=== PATIENT | male | born 1960 | race Hispanic/Latino ===

== ENCOUNTER 2021-02-07 18:13 | Inpatient (IN) | payer MEDICAID, OTHER ==
[2021-02-07] MEDS ORDERED: SODIUM CHLORIDE 0.9% 1000 ML IV SOLN IV ONE (19:50)
--- NOTE | 2021-02-07 19:53 | Event Note ---
ED Screening Note ED Screening Note: +chills +fever +confusion +CP +SOB no abd pain, no n/v/d no sick contacts no recent travel PMHx DM, Low Platelets previously heavy drinker strong urine smell states the year is 2001, does not know the name of the president severe sepsis This initial assessment/diagnostic orders/clinical plan/treatment(s) is/are subject to change based on patients health status, clinical progression and re- assessment by fellow clinical providers in the ED. Further treatment and workup at subsequent clinical providers discretion. Patient/guardian urged not to elope from the ED as their condition may be serious if not clinically assessed and managed. Initial orders include: labs, CXR, EKG, CT head, urine charge nurse jay notified pt needs room JAMES
[2021-02-07 20:05] LABS: Basophils % (Auto) 0.4 % (0.0-1.8); Hematocrit 32.1 % (35.5-45.6); Hemoglobin 10.6 gm/dl (11.8-15.2); Lymphocytes # (Auto) 0.5 K/mm3 (1.2-5.4); Lymphocytes % (Auto) 9.4 % (13.4-35.0); Mean Corpuscular HGB Conc 33 % (32-34); Mean Corpuscular Volume 77 fl (84-94); Monocytes # (Auto) 0.5 K/mm3 (0.0-0.8); Monocytes % (Auto) 9.2 % (0.0-7.3); Red Blood Count 4.18 M/mm3 (3.65-5.03); Red Cell Distribution Width 16.8 % (13.2-15.2)
[2021-02-07] MEDS ORDERED: SODIUM CHLORIDE 0.9% 500 ML 500 ML ONE (20:10)
--- NOTE | 2021-02-07 20:13 | Emergency Department Report ---
HPI - General Chief Complaint: Weakness Time Seen by Provider: 02/07/21 19:49 - HPI HPI: This is a 60-year-old male who presents to the emergency department with complaint of having chills, pain at the area of his right foot amputation, and multiple recent falls including today. 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 He has not taken anything for his symptoms prior to presentation. He denies having a primary care physician. He is a former smoker and former drinker. He denies any illicit drug use. ED Past Medical Hx - Past Medical History Previous Medical History?: Yes Hx Diabetes: Yes Additional medical history: Hepatitis - Surgical History Past Surgical History?: No ED Review of Systems ROS: Stated complaint: RT FOOT INFECTED/FALL Other details as noted in HPI Comment: All other systems reviewed and negative Constitutional: chills. denies: diaphoresis Eyes: denies: eye pain, vision change ENT: denies: ear pain, throat pain Respiratory: denies: cough, shortness of breath Cardiovascular: denies: chest pain, palpitations Gastrointestinal: denies: abdominal pain, vomiting Genitourinary: denies: dysuria, discharge Musculoskeletal: arthralgia. denies: back pain Skin: lesions (right foot wound). denies: pruritus Neurological: denies: headache, numbness Physical Exam - Physical Exam Vital Signs: Vital Signs 02/07/21 19:50 Pulse Rate 108 H Respiratory 18 Rate Blood Pressure 72/40 [Left] Blood Pressure 84/45 [Right] O2 Sat by Pulse 98 Oximetry Physical Exam: GENERAL: The patient is well-developed well-nourished. HENT: Normocephalic. Atraumatic. Patient has moist mucous membranes. EYES: Extraocular motions are intact. NECK: Supple. Trachea is midline. CHEST/LUNGS: Clear to auscultation. There is no respiratory distress noted. HEART/CARDIOVASCULAR: Regular. There is mild tachycardia. There is no murmur. ABDOMEN: Abdomen is soft, nontender. Patient has normal bowel sounds. SKIN: Skin is warm and dry. There is a stage II ulcerating wound to the plantar portion of the right midfoot amputation. There is some mild drainage seen. NEURO: The patient is awake, alert, and cooperative. Patient is confused, AAO x2 to person and place but not time. Cranial nerves II through XII grossly intact. Normal speech. MUSCULOSKELETAL: There is no tenderness or deformity. There is no limitation range of motion. ED Course Vital Signs 02/07/21 19:50 Pulse Rate 108 H Respiratory 18 Rate Blood Pressure 72/40 [Left] Blood Pressure 84/45 [Right] O2 Sat by Pulse 98 Oximetry ED Medical Decision Making - Lab Data Result diagrams: 02/07/21 19:53 02/07/21 19:53 Lab Results 02/07/21 02/07/21 02/07/21 Range/Units 19:53 19:53 19:53 WBC 5.5 (4.5-11.0) K/mm3 RBC 4.18 (3.65-5.03) M/mm3 Hgb 10.6 L (11.8-15.2) gm/dl Hct 32.1 L (35.5-45.6) % MCV 77 L (84-94) fl MCH 25 L (28-32) pg MCHC 33 (32-34) % RDW 16.8 H (13.2-15.2) % Plt Count 85 L (140-440) K/mm3 Lymph % (Auto) 9.4 L (13.4-35.0) % [place] % (Auto) 9.2 H (0.0-7.3) % Eos % (Auto) 0.0 (0.0-4.3) % Baso % (Auto) 0.4 (0.0-1.8) % Lymph # (Auto) 0.5 L (1.2-5.4) K/mm3 [place] # (Auto) 0.5 (0.0-0.8) K/mm3 Eos # (Auto) 0.0 (0.0-0.4) K/mm3 Baso # (Auto) 0.0 (0.0-0.1) K/mm3 Seg Neutrophils % 81.0 H (40.0-70.0) % Seg Neutrophils # 4.5 (1.8-7.7) K/mm3 APTT 35.1 (24.2-36.6) Sec. VBG pH (7.320-7.420) Sodium 128 L (137-145) mmol/L Potassium 4.8 (3.6-5.0) mmol/L Chloride 93.3 L (98-107) mmol/L Carbon Dioxide 21 L (22-30) mmol/L Anion Gap 19 mmol/L BUN 12 (9-20) mg/dL Creatinine 2.0 H (0.8-1.3) mg/dL Estimated GFR 34 ml/min BUN/Creatinine Ratio 6 % Glucose 230 H (75-100) mg/dL Lactic Acid (0.7-2.0) mmol/L Calcium 8.3 L (8.4-10.2) mg/dL Total Bilirubin 0.60 (0.1-1.2) mg/dL AST 12 (5-40) units/L ALT 9 (7-56) units/L Alkaline Phosphatase 133 H (35-129) units/L Ammonia (25-60) umol/L Troponin T 0.017 (0.00-0.029) ng/mL Total Protein 6.9 (6.3-8.2) g/dL Albumin 3.1 L (3.9-5) g/dL Albumin/Globulin Ratio 0.8 % Salicylates (2.8-20.0) mg/dL Acetaminophen (10.0-30.0) ug/mL 02/07/21 02/07/21 02/07/21 Range/Units 19:53 19:53 19:53 WBC (4.5-11.0) K/mm3 RBC (3.65-5.03) M/mm3 Hgb (11.8-15.2) gm/dl Hct (35.5-45.6) % MCV (84-94) fl MCH (28-32) pg MCHC (32-34) % RDW (13.2-15.2) % Plt Count (140-440) K/mm3 Lymph % (Auto) (13.4-35.0) % [place] % (Auto) (0.0-7.3) % Eos % (Auto) (0.0-4.3) % Baso % (Auto) (0.0-1.8) % Lymph # (Auto) (1.2-5.4) K/mm3 [place] # (Auto) (0.0-0.8) K/mm3 Eos # (Auto) (0.0-0.4) K/mm3 Baso # (Auto) (0.0-0.1) K/mm3 Seg Neutrophils % (40.0-70.0) % Seg Neutrophils # (1.8-7.7) K/mm3 APTT (24.2-36.6) Sec. VBG pH 7.464 H (7.320-7.420) Sodium (137-145) mmol/L Potassium (3.6-5.0) mmol/L Chloride (98-107) mmol/L Carbon Dioxide (22-30) mmol/L Anion Gap mmol/L BUN (9-20) mg/dL Creatinine (0.8-1.3) mg/dL Estimated GFR ml/min BUN/Creatinine Ratio % Glucose (75-100) mg/dL Lactic Acid 3.30 H* (0.7-2.0) mmol/L Calcium (8.4-10.2) mg/dL Total Bilirubin (0.1-1.2) mg/dL AST (5-40) units/L ALT (7-56) units/L Alkaline Phosphatase (35-129) units/L Ammonia 23.0 L (25-60) umol/L Troponin T (0.00-0.029) ng/mL Total Protein (6.3-8.2) g/dL Albumin (3.9-5) g/dL Albumin/Globulin Ratio % Salicylates (2.8-20.0) mg/dL Acetaminophen (10.0-30.0) ug/mL 02/07/21 02/07/21 02/07/21 Range/Units 19:53 19:53 20:34 WBC (4.5-11.0) K/mm3 RBC (3.65-5.03) M/mm3 Hgb (11.8-15.2) gm/dl Hct (35.5-45.6) % MCV (84-94) fl MCH (28-32) pg MCHC (32-34) % RDW (13.2-15.2) % Plt Count (140-440) K/mm3 Lymph % (Auto) (13.4-35.0) % [place] % (Auto) (0.0-7.3) % Eos % (Auto) (0.0-4.3) % Baso % (Auto) (0.0-1.8) % Lymph # (Auto) (1.2-5.4) K/mm3 [place] # (Auto) (0.0-0.8) K/mm3 Eos # (Auto) (0.0-0.4) K/mm3 Baso # (Auto) (0.0-0.1) K/mm3 Seg Neutrophils % (40.0-70.0) % Seg Neutrophils # (1.8-7.7) K/mm3 APTT (24.2-36.6) Sec. VBG pH (7.320-7.420) Sodium (137-145) mmol/L Potassium (3.6-5.0) mmol/L Chloride (98-107) mmol/L Carbon Dioxide (22-30) mmol/L Anion Gap mmol/L BUN (9-20) mg/dL Creatinine (0.8-1.3) mg/dL Estimated GFR ml/min BUN/Creatinine Ratio % Glucose (75-100) mg/dL Lactic Acid 1.90 (0.7-2.0) mmol/L Calcium (8.4-10.2) mg/dL Total Bilirubin (0.1-1.2) mg/dL AST (5-40) units/L ALT (7-56) units/L Alkaline Phosphatase (35-129) units/L Ammonia (25-60) umol/L Troponin T (0.00-0.029) ng/mL Total Protein (6.3-8.2) g/dL Albumin (3.9-5) g/dL Albumin/Globulin Ratio % Salicylates < 0.3 L (2.8-20.0) mg/dL Acetaminophen 5.0 L (10.0-30.0) ug/mL - EKG Data -: EKG Interpreted by Ri EKG shows normal: sinus rhythm, axis, intervals, QRS complexes, ST-T waves Rate: normal - EKG Data When compared to previous EKG there are: previous EKG unavailable Interpretation: normal EKG - Radiology Data Radiology results: report reviewed, image reviewed interpreted by me: Chest x-ray does not show any acute process. There are no pleural effusions, obvious pneumonia and there is no pneumothorax. No significant cardiomegaly. X-ray of the right foot does not show any fracture, dislocation, or signs of osteomyelitis. CT head/brain wo con INDICATION / CLINICAL INFORMATION: 60 years Male; weakness, suspected sepsis, confusion. TECHNIQUE: Routine CT head without contrast. All CT scans at this location are performed using CT dose reduction for ALARA by means of automated exposure control. COMPARISON: None. FINDINGS: BRAIN / INTRACRANIAL CONTENTS: There appears be mild cerebral white matter changes most consistent with mild microvascular angiopathy. There is also mild cerebral atrophy with associated prominence of the ventricular system. There is no clear CT evidence of acute intracranial hemorrhage or significant mass effect. ORBITS: The patient is status post repair of left orbital for fracture with presence of mesh. SINUSES / MASTOIDS: The visualized paranasal sinuses are pneumatized. CRANIOCERVICAL JUNCTION: No significant abnormality. 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 IMPRESSION: 1. There is mild microvascular angiopathy and cerebral atrophy without clear CT evidence of acute intracranial hemorrhage. - Medical Decision Making This patient presents to the emergency department with a complaint of a fall with some generalized weakness that occurred today, as well as multiple recent falls. The patient presents as a code sepsis with hypotension and tachycardia. The patient was started on IV fluid and his blood pressure has improved. Afebrile. He has a diabetic foot wound to the plantar portion of the right foot which is amputated at the midfoot. An x-ray was done that does not show any current signs of osteomyelitis. Chest x-ray does not show any pneumonia, pleural effusions, pneumothorax, or any other acute process. The patient is slightly confused, currently AAO x2 to person and place but not time. He does not have any motor or sensory deficits. Cranial nerves are intact. CT scan of the head without contrast does not show any bleed, shift, mass, ischemia, or any other acute process. His labs shows hyponatremia, acute renal insufficiency with a GFR of about 30, and the patient has a lactic acidosis. He has been started on some empiric IV antibiotics. The patient will be admitted to the hospital for further evaluation and treatment and was accepted for admission by the hospitalist, Dr. Haider. Critical Care Time: No Critical care attestation.: If time is entered above; I have spent that time in minutes in the direct care of this critically ill patient, excluding procedure time. ED Disposition Clinical Impression: Hyponatremia syndrome, ANGEL (acute kidney injury), SIRS (systemic inflammatory response syndrome) Altered mental status Qualifiers: Altered mental status type: unspecified Qualified Code(s): R41.82 - Altered mental status, unspecified Disposition: OP ADMIT IP TO THIS HOSP Is pt being admited?: Yes Condition: Serious Time of Disposition: 22:22
[2021-02-07 20:25] LABS: Albumin 3.1 g/dL (3.9-5); Calcium 8.3 mg/dL (8.4-10.2)
[2021-02-07 20:26] LABS: Platelet Count 85 K/mm3 (140-440)
--- NOTE | 2021-02-07 20:39 | Cat Scan Report ---
CT head/brain wo con INDICATION / CLINICAL INFORMATION: 60 years Male; weakness, suspected sepsis, confusion. TECHNIQUE: Routine CT head without contrast. All CT scans at this location are performed using CT dos e reduction for ALARA by means of automated exposure control. COMPARISON: None. FINDINGS: BRAIN / INTRACRANIAL CONTENTS: There appears be mild cerebral white matter changes most consistent wi th mild microvascular angiopathy. There is also mild cerebral atrophy with associated prominence of t he ventricular system. There is no clear CT evidence of acute intracranial hemorrhage or significant mass effect. ORBITS: The patient is status post repair of left orbital for fracture with presence of mesh. SINUSES / MASTOIDS: The visualized paranasal sinuses are pneumatized. CRANIOCERVICAL JUNCTION: No significant abnormality. 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 IMPRESSION: 1. There is mild microvascular angiopathy and cerebral atrophy without clear CT evidence of acute int racranial hemorrhage. Signer Name: Alfonso Rosa MD Signed: 02/07/2021 8:34 PM Workstation Name: [id number]
--- NOTE | 2021-02-07 20:44 | XRay Report ---
CHEST 1 VIEW INDICATION: suspected sepsis. COMPARISON: None. FINDINGS: Support devices: None. Heart: Normal. Lungs/Pleura: There are low lung volumes with mild atelectatic changes in the bases. No consolidation or effusion. No pneumothorax. IMPRESSION: 1. No acute findings. Signer Name: Martin Lao MD Signed: 02/07/2021 8:40 PM Workstation Name: [id number]
--- NOTE | 2021-02-07 20:46 | XRay Report ---
RIGHT FOOT 2 VIEWS INDICATION: right foot wound, pain, hx of osteomyelitis. COMPARISON: No relevant prior imaging study available. FINDINGS: There has been amputation of the forefoot involving the toes and the metatarsals with sparing of the metatarsal bases. No acute cortical destruction is seen. No definite soft tissue gas. No radiodense foreign bodies. [place] vascular calcifications are not ed. IMPRESSION: 1. No radiographic evidence of acute osteomyelitis. Signer Name: Martin Lao MD Signed: 02/07/2021 8:41 PM Workstation Name: [id number]
[2021-02-07] MEDS ORDERED: CLINDAMYCIN 600 MG/50 mL 600 MG/50 ML BAG IV ONE (22:15)
[2021-02-07] MEDS ORDERED: MORPHINE 2 MG/1 ML INJ IV PRN (22:49)
[2021-02-07] MEDS ORDERED: MAGNESIUM HYDROXIDE (MOM) ORAL LIQD UDC PO PRN (22:49)
[2021-02-07] MEDS ORDERED: ONDANSETRON 4 MG/2 ML INJ IV PRN (22:49)
[2021-02-07] MEDS ORDERED: DEXTROSE 50% IN WATER (25GM) 50 ML SYRINGE IV PRN (22:49)
[2021-02-08] MEDS: ACETAMINOPHEN 325 MG TAB PO PRN (03:59)
[2021-02-08] MEDS: SODIUM CHLORIDE 0.9% 1000 ML 1,000 ML IV SCH ×2 (03:59→14:11)
--- NOTE | 2021-02-08 04:11 | History and Physical Report ---
History of Present Illness Date of examination: 02/08/21 Date of admission: 02/07/21 22:23 Chief complaint: Chills Pain right foot. History of present illness: Patient is a 60-year-old male with known history of diabetes mellitus and hepatitis C presents to the emergency room today complaining of chills and pain on the right foot after having multiple falls. Patient denies hitting his head and denies any loss of consciousness. 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 He has had some minimal drainage from the stump with increasing pain lately. Patient denies any fever or chills, no chest pain or shortness of breath, no na usea or vomiting. Work-up in the emergency room today reveals hyponatremia 128, lactic acidosis and slightly elevated creatinine level. Patient has been admitted with right foot ulcer, hypertension and SIRS. Past History Past Medical History: diabetes, hypertension Past Surgical History: Other (Partial amputation of right foot.) Social history: no significant social history Family history: no significant family history Medications and Allergies Allergies Allergy/AdvReac Type Severity Reaction Status Date / Time No Known Allergies Allergy Verified 02/07/21 22:57 Active Meds: Active Medications Acetaminophen (Acetaminophen 325 Mg Tab) 650 mg PO Q4H PRN PRN Reason: Pain MILD(1-3)/Fever >100.5/JETT Dextrose (Dextrose 50% In Water (25gm) 50 Ml Syringe) 50 ml IV Q30MIN PRN; Protocol PRN Reason: Hypoglycemia Sodium Chloride (Nacl 0.9% 1000 Ml) 1,000 mls @ 125 mls/hr IV DIRECT KRISSY Insulin Human Lispro (Insulin Lispro 100 Unit/Ml) 0 unit SUB-Q ACHS KRISSY; Protocol Magnesium Hydroxide (Magnesium Hydroxide (Mom) Oral Liqd Udc) 30 ml PO Q4H PRN PRN Reason: Constipation Morphine Sulfate (Morphine 2 Mg/1 Ml Inj) 2 mg IV Q4H PRN PRN Reason: Pain, Moderate (4-6) Ondansetron HCl (Ondansetron 4 Mg/2 Ml Inj) 4 mg IV Q8H PRN PRN Reason: Nausea And Vomiting Sodium Chloride (Sodium Chloride 0.9% 10 Ml Flush Syringe) 10 ml IV BID KRISSY Sodium Chloride (Sodium Chloride 0.9% 10 Ml Flush Syringe) 10 ml IV PRN PRN PRN Reason: LINE FLUSH Review of Systems Constitutional: chills, no fever Ears, nose, mouth and throat: no nasal congestion, no sore throat Cardiovascular: no chest pain, no palpitations Respiratory: no cough, no shortness of breath Gastrointestinal: no abdominal pain, no nausea, no vomiting, no diarrhea Genitourinary Male: no dysuria, no hematuria, no flank pain, no nocturia Musculoskeletal: no neck pain, no low back pain Integumentary: no rash, no pruritis Neurological: no headaches, no confusion Psychiatric: no anxiety, no depression Endocrine: no polydipsia, no polyuria, no nocturia Exam - Constitutional Vitals: Temp Pulse Resp BP Pulse Ox 98.8 F 90 25 H 109/57 96 02/07/21 23:05 02/07/21 23:05 02/07/21 23:05 02/07/21 23:05 02/07/21 23:05 General appearance: Present: no acute distress, well-nourished, disheveled - EENT Eyes: Present: PERRL, EOM intact. Absent: scleral icterus ENT: hearing intact, clear oral mucosa, dentition normal - Neck Neck: Present: supple, normal ROM - Respiratory Respiratory effort: normal Respiratory: bilateral: CTA - Cardiovascular Rhythm: regular Heart Sounds: Present: S1 & S2. Absent: gallop, systolic murmur, diastolic murmur, rub, click - Extremities Extremities: No edema, Full ROM, abnormal (Partial amputation right foot, 5x5cm open wound on planter aspect of right stump,) Extremity abnormal: pulses diminished Peripheral Pulses: within normal limits - Abdominal General gastrointestinal: Present: soft, non-tender, non-distended, normal bowel sounds. Absent: mass - Integumentary Integumentary: Present: clear, warm, dry. Absent: rash - Musculoskeletal Musculoskeletal: strength equal bilaterally - Psychiatric Psychiatric: appropriate mood/affect, intact judgment & insight, memory intact, cooperative - Neurologic Neurologic: CNII-XII intact, no focal deficits, moves all extremities HEART Score - HEART Score Troponin: Troponin T 0.017 ng/mL (0.00-0.029) 02/07/21 19:53 Results - Labs CBC & Chem 7: 02/08/21 04:47 02/08/21 04:47 Labs: Abnormal lab results 0302/07/21 02/07/21 Range/Units 19:53 19:53 19:53 Hgb 10.6 L (11.8-15.2) gm/dl Hct 32.1 L (35.5-45.6) % MCV 77 L (84-94) fl MCH 25 L (28-32) pg RDW 16.8 H (13.2-15.2) % Plt Count 85 L (140-440) K/mm3 Lymph % (Auto) 9.4 L (13.4-35.0) % [place] % (Auto) 9.2 H (0.0-7.3) % Lymph # (Auto) 0.5 L (1.2-5.4) K/mm3 Seg Neutrophils % 81.0 H (40.0-70.0) % VBG pH (7.320-7.420) Sodium 128 L (137-145) mmol/L Chloride 93.3 L (98-107) mmol/L Carbon Dioxide 21 L (22-30) mmol/L Creatinine 2.0 H (0.8-1.3) mg/dL Glucose 230 H (75-100) mg/dL Lactic Acid 3.30 H* (0.7-2.0) mmol/L Calcium 8.3 L (8.4-10.2) mg/dL Alkaline Phosphatase 133 H (35-129) units/L Ammonia (25-60) umol/L Albumin 3.1 L (3.9-5) g/dL Salicylates (2.8-20.0) mg/dL Acetaminophen (10.0-30.0) ug/mL 02/07/21 02/07/21 02/07/21 Range/Units 19:53 19:53 19:53 Hgb (11.8-15.2) gm/dl Hct (35.5-45.6) % MCV (84-94) fl MCH (28-32) pg RDW (13.2-15.2) % Plt Count (140-440) K/mm3 Lymph % (Auto) (13.4-35.0) % [place] % (Auto) (0.0-7.3) % Lymph # (Auto) (1.2-5.4) K/mm3 Seg Neutrophils % (40.0-70.0) % VBG pH 7.464 H (7.320-7.420) Sodium (137-145) mmol/L Chloride (98-107) mmol/L Carbon Dioxide (22-30) mmol/L Creatinine (0.8-1.3) mg/dL Glucose (75-100) mg/dL Lactic Acid (0.7-2.0) mmol/L Calcium (8.4-10.2) mg/dL Alkaline Phosphatase (35-129) units/L Ammonia 23.0 L (25-60) umol/L Albumin (3.9-5) g/dL Salicylates < 0.3 L (2.8-20.0) mg/dL Acetaminophen (10.0-30.0) ug/mL 02/07/21 Range/Units 19:53 Hgb (11.8-15.2) gm/dl Hct (35.5-45.6) % MCV (84-94) fl MCH (28-32) pg RDW (13.2-15.2) % Plt Count (140-440) K/mm3 Lymph % (Auto) (13.4-35.0) % [place] % (Auto) (0.0-7.3) % Lymph # (Auto) (1.2-5.4) K/mm3 Seg Neutrophils % (40.0-70.0) % VBG pH (7.320-7.420) Sodium (137-145) mmol/L Chloride (98-107) mmol/L Carbon Dioxide (22-30) mmol/L Creatinine (0.8-1.3) mg/dL Glucose (75-100) mg/dL Lactic Acid (0.7-2.0) mmol/L Calcium (8.4-10.2) mg/dL Alkaline Phosphatase (35-129) units/L Ammonia (25-60) umol/L Albumin (3.9-5) g/dL Salicylates (2.8-20.0) mg/dL Acetaminophen 5.0 L (10.0-30.0) ug/mL Assessment and Plan - Patient Problems (1) Altered mental status Current Visit: Yes Status: Acute Qualifiers: Altered mental status type: unspecified Qualified Code(s): R41.82 - Altered mental status, unspecified Plan to address problem: Etiology unclear. Probably secondary to underlying Infection. Will monitor mental status (2) SIRS (systemic inflammatory response syndrome) Current Visit: Yes Status: Acute Plan to address problem: Patient placed on IV fluid and empiric IV antibiotics. No obvious source of infection except for the open wound on the stump of right foot. (3) Hyponatremia Current Visit: Yes Status: Acute Plan to address problem: Patient placed on IV fluid. We will monitor chemistry. (4) DVT prophylaxis Current Visit: Yes Status: Acute Plan to address problem: Patient placed on subcutaneous heparin. (5) Full code status Current Visit: Yes Status: Acute Plan to address problem: Patient is full code.
[2021-02-08] MEDS ORDERED: CLINDAMYCIN 600 MG/50 mL 600 MG/50 ML BAG IV SCH (06:00)
[2021-02-08 06:17] LABS: Basophils % (Auto) 0.2 % (0.0-1.8); Eosinophils % (Auto) 0.5 % (0.0-4.3); Hematocrit 27.2 % (35.5-45.6); Hemoglobin 8.9 gm/dl (11.8-15.2); Lymphocytes # (Auto) 0.6 K/mm3 (1.2-5.4); Lymphocytes % (Auto) 17.6 % (13.4-35.0); Mean Corpuscular HGB Conc 33 % (32-34); Mean Corpuscular Volume 76 fl (84-94); Monocytes # (Auto) 0.4 K/mm3 (0.0-0.8); Monocytes % (Auto) 12.3 % (0.0-7.3); Red Blood Count 3.57 M/mm3 (3.65-5.03); Red Cell Distribution Width 16.6 % (13.2-15.2)
[2021-02-08 06:21] LABS: INR 1.3 (0.87-1.13)
[2021-02-08 06:25] LABS: Calcium 7.3 mg/dL (8.4-10.2)
[2021-02-08 06:27] LABS: Platelet Count 61 K/mm3 (140-440)
[2021-02-08 09:18] LABS: Bilirubin,Urine NEG (Negative); Blood,Urine SM (Negative); Color,Urine Yellow (Yellow); Hyaline Casts,Urine 1 /LPF; Mucus,Urine FEW /HPF; Urobilinogen,Urine < 2.0 mg/dL (<2.0); WBC,Urine < 1.0 /HPF (0.0-6.0)
[2021-02-08] MEDS: INSULIN LISPRO 100 UNIT/ML SUB-Q SCH ×4 (09:42→22:12)
--- NOTE | 2021-02-08 11:12 | Progress Note ---
Assessment and Plan Assessment and plan: Sepsis. Patient meets criteria given the diagnosis of osteomyelitis, fever, leukopenia, tachycardia and altered mentation. Chronic osteomyelitis/cellulitis. Consult ID for further evaluation. Continue IV antibiotics. Diabetes mellitus type 2. Continue Accu-Cheks and sliding scale insulin Hypertension. Continue antihypertensive medications History Interval history: No new issues overnight. Hospitalist Physical - Constitutional Vitals: Temp Pulse Resp BP Pulse Ox 98.4 F 69 16 124/60 89 02/08/21 07:06 02/08/21 10:00 02/08/21 07:06 02/08/21 07:06 02/08/21 07:06 General appearance: Present: no acute distress, well-nourished, disheveled - EENT Eyes: Present: PERRL, EOM intact ENT: hearing intact, clear oral mucosa, dentition normal - Neck Neck: Present: supple, normal ROM - Respiratory Respiratory effort: normal Respiratory: bilateral: CTA - Cardiovascular Rhythm: regular Heart Sounds: Present: S1 & S2. Absent: gallop, rub - Extremities Extremities: no ischemia, No edema, Full ROM - Abdominal General gastrointestinal: soft, non-tender, non-distended, normal bowel sounds - Integumentary Integumentary: Present: clear, warm, dry - Neurologic Neurologic: CNII-XII intact, moves all extremities HEART Score - HEART Score Troponin: Troponin T 0.017 ng/mL (0.00-0.029) 02/07/21 19:53 Results - Labs CBC & Chem 7: 02/08/21 04:47 02/08/21 04:47 Labs: Laboratory Last Values WBC 3.6 K/mm3 (4.5-11.0) L 02/08/21 04:47 RBC 3.57 M/mm3 (3.65-5.03) L 02/08/21 04:47 Hgb 8.9 gm/dl (11.8-15.2) L 02/08/21 04:47 Hct 27.2 % (35.5-45.6) L 02/08/21 04:47 MCV 76 fl (84-94) L 02/08/21 04:47 MCH 25 pg (28-32) L 02/08/21 04:47 MCHC 33 % (32-34) 02/08/21 04:47 RDW 16.6 % (13.2-15.2) H 02/08/21 04:47 Plt Count 61 K/mm3 (140-440) L 02/08/21 04:47 Lymph % (Auto) 17.6 % (13.4-35.0) 02/08/21 04:47 [place] % (Auto) 12.3 % (0.0-7.3) H 02/08/21 04:47 Eos % (Auto) 0.5 % (0.0-4.3) 02/08/21 04:47 Baso % (Auto) 0.2 % (0.0-1.8) 02/08/21 04:47 Lymph # (Auto) 0.6 K/mm3 (1.2-5.4) L 02/08/21 04:47 [place] # (Auto) 0.4 K/mm3 (0.0-0.8) 02/08/21 04:47 Eos # (Auto) 0.0 K/mm3 (0.0-0.4) 02/08/21 04:47 Baso # (Auto) 0.0 K/mm3 (0.0-0.1) 02/08/21 04:47 Seg Neutrophils % 69.4 % (40.0-70.0) 02/08/21 04:47 Seg Neutrophils # 2.5 K/mm3 (1.8-7.7) 02/08/21 04:47 PT 16.2 Sec. (12.2-14.9) H 02/08/21 04:47 INR 1.30 (0.87-1.13) H 02/08/21 04:47 APTT 35.1 Sec. (24.2-36.6) 02/07/21 19:53 VBG pH 7.464 (7.320-7.420) H 02/07/21 19:53 Sodium 131 mmol/L (137-145) L 02/08/21 04:47 Potassium 3.9 mmol/L (3.6-5.0) 02/08/21 04:47 Chloride 100.3 mmol/L (98-107) 02/08/21 04:47 Carbon Dioxide 20 mmol/L (22-30) L 02/08/21 04:47 Anion Gap 15 mmol/L 02/08/21 04:47 BUN 11 mg/dL (9-20) 02/08/21 04:47 Creatinine 1.6 mg/dL (0.8-1.3) H 02/08/21 04:47 Estimated GFR 44 ml/min 02/08/21 04:47 BUN/Creatinine Ratio 7 % 02/08/21 04:47 Glucose 169 mg/dL (75-100) H 02/08/21 04:47 POC Glucose 197 mg/dL (70-105) H 02/08/21 07:24 Hemoglobin A1c 10.6 % (4-6) H 02/07/21 19:53 Lactic Acid 1.90 mmol/L (0.7-2.0) 02/07/21 20:34 Calcium 7.3 mg/dL (8.4-10.2) L 02/08/21 04:47 Total Bilirubin 0.60 mg/dL (0.1-1.2) 02/07/21 19:53 AST 12 units/L (5-40) 02/07/21 19:53 ALT 9 units/L (7-56) 02/07/21 19:53 Alkaline Phosphatase 133 units/L (35-129) H 02/07/21 19:53 Ammonia 23.0 umol/L (25-60) L 02/07/21 19:53 Troponin T 0.017 ng/mL (0.00-0.029) 02/07/21 19:53 Total Protein 6.9 g/dL (6.3-8.2) 02/07/21 19:53 Albumin 3.1 g/dL (3.9-5) L 02/07/21 19:53 Albumin/Globulin Ratio 0.8 % 02/07/21 19:53 Urine Color Yellow (Yellow) 02/07/21 08:56 Urine Turbidity Clear (Clear) 02/07/21 08:56 Urine pH 6.0 (5.0-7.0) 02/07/21 08:56 Ur Specific [place] 1.005 (1.003-1.030) 02/07/21 08:56 Urine Protein 30 mg/dl mg/dL (Negative) 02/07/21 08:56 Urine Glucose (UA) >=500 mg/dL (Negative) 02/07/21 08:56 Urine Ketones Neg mg/dL (Negative) 02/07/21 08:56 Urine Blood Sm (Negative) 02/07/21 08:56 Urine Nitrite Neg (Negative) 02/07/21 08:56 Urine Bilirubin Neg (Negative) 02/07/21 08:56 Urine Urobilinogen < 2.0 mg/dL (<2.0) 02/07/21 08:56 Ur Leukocyte Esterase Neg (Negative) 02/07/21 08:56 Urine WBC (Auto) < 1.0 /HPF (0.0-6.0) 02/07/21 08:56 Urine RBC (Auto) 1.0 /HPF (0.0-6.0) 02/07/21 08:56 Hyaline Casts 1 /LPF 02/07/21 08:56 Urine Mucus Few /HPF 02/07/21 08:56 Salicylates < 0.3 mg/dL (2.8-20.0) L 02/07/21 19:53 Acetaminophen 5.0 ug/mL (10.0-30.0) L 02/07/21 19:53 Microbiology: Microbiology 02/07/21 19:53 Peripheral/Venous Blood Culture - Preliminary Culture in Progress 02/07/21 19:53 Peripheral/Venous Blood Culture - Preliminary Culture in Progress [place]/IV: Voiding Method Urinal Active Medications - Current Medications Current Medications: Generic Name Dose Route Start Last Admin Trade Name Freq PRN Reason Stop Dose Admin Acetaminophen 650 mg 02/07/21 22:49 02/08/21 03:59 Acetaminophen 325 Mg Tab PO 650 mg Q4H PRN Administration Pain MILD(1-3)/Fever >100.5/JETT Dextrose 50 ml 02/07/21 22:49 Dextrose 50% In Water (25gm) 50 Ml Syringe IV Q30MIN PRN Hypoglycemia Protocol Sodium Chloride 1,000 mls @ 125 mls/hr 02/07/21 23:00 02/08/21 03:59 Nacl 0.9% 1000 Ml IV 125 mls/hr DIRECT KRISSY Administration Clindamycin HCl 600 mg in 50 mls @ 100 mls/hr 02/08/21 06:00 02/08/21 06:12 Cleocin 600 Mg/50 Ml IV 100 mls/hr Q8H KRISSY Administration Protocol Insulin Human Lispro 0 unit 02/08/21 07:30 02/08/21 09:42 Insulin Lispro 100 Unit/Ml SUB-Q 2 unit ACHS KRISSY Administration Protocol Magnesium Hydroxide 30 ml 02/07/21 22:49 Magnesium Hydroxide (Mom) Oral Liqd Udc PO Q4H PRN Constipation Morphine Sulfate 2 mg 02/07/21 22:49 Morphine 2 Mg/1 Ml Inj IV Q4H PRN Pain, Moderate (4-6) Ondansetron HCl 4 mg 02/07/21 22:49 Ondansetron 4 Mg/2 Ml Inj IV Q8H PRN Nausea And Vomiting Sodium Chloride 10 ml 02/08/21 10:00 02/08/21 09:41 Sodium Chloride 0.9% 10 Ml Flush Syringe IV 10 ml BID KRISSY Administration Sodium Chloride 10 ml 02/07/21 22:49 Sodium Chloride 0.9% 10 Ml Flush Syringe IV PRN PRN LINE FLUSH
--- NOTE | 2021-02-08 11:38 | Consultation ---
History of Present Illness - Reason for Consult Consult date: 02/08/21 acute renal failure - History of Present Illness This is a 60-year-old male with known history of diabetes mellitus and hepatitis C presents with chills and pain on the right foot after having multiple falls. 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 He was recently at [facility] for diabetic foot ulcer, seen by renal consult Dr. Baptiste at that time for ANGEL/CKD, creatinine around 1.5, sodium around 133 but labile. Work-up in the emergency room revealed hyponatremia 128, lactic acidosis, creatinine 2.0. At time of consult, patient is without concerns, denies edema, dyspnea, chest pain, abnormal urination Past History Past Medical History: diabetes, hypertension Past Surgical History: Other (Partial amputation of right foot.) Social history: no significant social history Family history: no significant family history Medications and Allergies Allergies Allergy/AdvReac Type Severity Reaction Status Date / Time No Known Allergies Allergy Verified 02/07/21 22:57 Active Meds: Active Medications Acetaminophen (Acetaminophen 325 Mg Tab) 650 mg PO Q4H PRN PRN Reason: Pain MILD(1-3)/Fever >100.5/JETT Last Admin: 02/08/21 03:59 Dose: 650 mg Documented by: Dextrose (Dextrose 50% In Water (25gm) 50 Ml Syringe) 50 ml IV Q30MIN PRN; Protocol PRN Reason: Hypoglycemia Sodium Chloride (Nacl 0.9% 1000 Ml) 1,000 mls @ 125 mls/hr IV DIRECT KRISSY Last Admin: 02/08/21 03:59 Dose: 125 mls/hr Documented by: Clindamycin HCl (Cleocin 600 Mg/50 Ml) 600 mg in 50 mls @ 100 mls/hr IV Q8H KRISSY; Protocol Last Admin: 02/08/21 06:12 Dose: 100 mls/hr Documented by: Insulin Human Lispro (Insulin Lispro 100 Unit/Ml) 0 unit SUB-Q ACHS KRISSY; Protocol Last Admin: 02/08/21 09:42 Dose: 2 unit Documented by: Magnesium Hydroxide (Magnesium Hydroxide (Mom) Oral Liqd Udc) 30 ml PO Q4H PRN PRN Reason: Constipation Morphine Sulfate (Morphine 2 Mg/1 Ml Inj) 2 mg IV Q4H PRN PRN Reason: Pain, Moderate (4-6) Ondansetron HCl (Ondansetron 4 Mg/2 Ml Inj) 4 mg IV Q8H PRN PRN Reason: Nausea And Vomiting Sodium Chloride (Sodium Chloride 0.9% 10 Ml Flush Syringe) 10 ml IV BID KRISSY Last Admin: 02/08/21 09:41 Dose: 10 ml Documented by: Sodium Chloride (Sodium Chloride 0.9% 10 Ml Flush Syringe) 10 ml IV PRN PRN PRN Reason: LINE FLUSH Review of Systems All systems: negative (as per HPI) Exam - Vital Signs Vital signs: Vital Signs Pulse Resp BP Pulse Ox 108 H 18 84/45 98 02/07/21 19:50 02/07/21 19:50 02/07/21 19:50 02/07/21 19:50 - Physical Exam Narrative exam: Constitutional: Alert, cooperative. No acute distress Head: Normocephalic, atraumatic Eyes: No icterus. Neck: Supple Cardiovascular: S1, S2 normal. Respiratory: clear to auscultation bilaterally GI: Soft, non-tender; bowel sounds normal Musculoskeletal: No pedal edema Skin: intact Neurological: Awake, alert, oriented. No focal deficits Results - Lab Results 02/08/21 04:47 02/08/21 04:47 Most recent lab results Calcium 7.3 mg/dL (8.4-10.2) L 02/08/21 04:47 Assessment and Plan # ANGEL: likely with CKD 2/2 DM, HTN, baseline creatinine appears around 1.4. Creatinine improved 2.0->1.6 with IVF, likely with pre-renal injury +/- tubular injury with infection - continue IVF as able - avoid nephrotoxins - defer ultrasound, serologies, urine studies given recent workup at [facility] (reviewed EPIC charting) - would benefit from SAMANTHA/ARB as outpatient, hold now given ANGEL, normotension - renally dose meds - needs CKD follow up/education on discharge, previously saw Dr. Baptiste at [facility], has not seen outpatient # Sepsis, Chronic osteomyelitis/cellulitis: ID recs noted, appreciate input # Diabetes mellitus type 2: management per primary. No proteinuria noted on prior workup # HTN: BP stable # Hyponatremia: mild, improved 128->133 with NS, likely ANGEL/pre-renal related, follow # Anemia: likely due to acute illness
--- NOTE | 2021-02-08 13:22 | Consultation ---
History of Present Illness - Reason for Consult Consult date: 02/08/21 R foot infection Requesting physician: DONNA MAR - History of Present Illness The patient is a 60-year-old male with diabetes mellitus type 2, gout, history of osteomyelitis of his right foot requiring a transmetatarsal amputation in the past, chronic alcohol abuse, chronic thrombocytopenia which has been evaluated by hematology and attributed to alcohol abuse came into the emergency room with complaints of multiple falls. He also reported pain at his right foot amputation site. He is a former smoker, states he has decreased his alcohol intake. Upon evaluation, did not have any fever on admission but later spiked a temperature of 101.3 F. Infectious diseases was consulted to evaluate his right foot infection. Patient used to follow-up with the wound care center at [facility] but states he does not have a ride anymore. Review of Systems: General: 1 episode of fever HEENT: no new visual disturbance Respiratory: No cough, sputum, hemoptysis or shortness of breath Cardiovascular: No chest pain, syncope Gastrointestinal: No nausea, vomiting or diarrhea Genitourinary: No dysuria or hematuria Musculoskeletal: No new or worsening neck pain or back pain Neurologic: No headaches, seizures Hematologic: No easy bruising or bleeding Endocrine: No night sweats or acute weight loss Skin: negative for rash, jaundice Psychiatric: No suicidal or homicidal ideation Past History Past Medical History: diabetes, hypertension Past Surgical History: Other (Partial amputation of right foot.) Social history: no significant social history Family history: no significant family history Medications and Allergies Allergies Allergy/AdvReac Type Severity Reaction Status Date / Time No Known Allergies Allergy Verified 02/07/21 22:57 Active Meds: Active Medications Acetaminophen (Acetaminophen 325 Mg Tab) 650 mg PO Q4H PRN PRN Reason: Pain MILD(1-3)/Fever >100.5/JETT Last Admin: 02/08/21 03:59 Dose: 650 mg Documented by: Dextrose (Dextrose 50% In Water (25gm) 50 Ml Syringe) 50 ml IV Q30MIN PRN; Protocol PRN Reason: Hypoglycemia Sodium Chloride (Nacl 0.9% 1000 Ml) 1,000 mls @ 125 mls/hr IV DIRECT KRISSY Last Admin: 02/08/21 03:59 Dose: 125 mls/hr Documented by: Clindamycin HCl (Cleocin 600 Mg/50 Ml) 600 mg in 50 mls @ 100 mls/hr IV Q8H REPLACED BY [facility]; Protocol Last Admin: 02/08/21 06:12 Dose: 100 mls/hr Documented by: Insulin Human Lispro (Insulin Lispro 100 Unit/Ml) 0 unit SUB-Q ACHS REPLACED BY [facility]; Protocol Last Admin: 02/08/21 11:53 Dose: 4 unit Documented by: Magnesium Hydroxide (Magnesium Hydroxide (Mom) Oral Liqd Udc) 30 ml PO Q4H PRN PRN Reason: Constipation Morphine Sulfate (Morphine 2 Mg/1 Ml Inj) 2 mg IV Q4H PRN PRN Reason: Pain, Moderate (4-6) Ondansetron HCl (Ondansetron 4 Mg/2 Ml Inj) 4 mg IV Q8H PRN PRN Reason: Nausea And Vomiting Sodium Chloride (Sodium Chloride 0.9% 10 Ml Flush Syringe) 10 ml IV BID REPLACED BY [facility] Last Admin: 02/08/21 09:41 Dose: 10 ml Documented by: Sodium Chloride (Sodium Chloride 0.9% 10 Ml Flush Syringe) 10 ml IV PRN PRN PRN Reason: LINE FLUSH Physical Examination - Physical Exam Narrative exam: Physical Exam: Constitutional: Alert, cooperative. No acute distress Head, Ears, Nose: Normocephalic, atraumatic. External ears, nose normal Eyes: Conjunctivae/corneas clear. No icterus. No ptosis. Neck: Supple, no meningeal signs Cardiovascular: S1, S2 normal. Respiratory: Good air entry, clear to auscultation bilaterally GI: Soft, non-tender; bowel sounds normal. No peritoneal signs Musculoskeletal: No pedal edema, no cyanosis. Skin: No rash or abscess Hem/Lymphatic: No palpable cervical or supraclavicular nodes. No lymphangitis Psych: Mood ok. Affect normal Neurological: Awake, alert, oriented. No gross abnormality - Constitutional Vitals: Vital Signs Temp Pulse Resp BP Pulse Ox 97.2 F L 80 15 113/70 96 02/08/21 11:03 02/08/21 11:03 02/08/21 11:03 02/08/21 11:03 02/08/21 11:03 Temperature -Last 24 Hours Temperature 97.2 F Temperature 98.4 F Temperature 101.3 F Temperature 98.8 F Temperature 98.5 F Results - Labs CBC & Chem 7: 02/08/21 04:47 02/08/21 04:47 Labs: Abnormal lab results 02/07/21 02/07/21 02/07/21 Range/Units 19:53 19:53 19:53 WBC (4.5-11.0) K/mm3 RBC (3.65-5.03) M/mm3 Hgb 10.6 L (11.8-15.2) gm/dl Hct 32.1 L (35.5-45.6) % MCV 77 L (84-94) fl MCH 25 L (28-32) pg RDW 16.8 H (13.2-15.2) % Plt Count 85 L (140-440) K/mm3 Lymph % (Auto) 9.4 L (13.4-35.0) % [place] % (Auto) 9.2 H (0.0-7.3) % Lymph # (Auto) 0.5 L (1.2-5.4) K/mm3 Seg Neutrophils % 81.0 H (40.0-70.0) % PT (12.2-14.9) Sec. INR (0.87-1.13) VBG pH (7.320-7.420) Sodium 128 L (137-145) mmol/L Chloride 93.3 L (98-107) mmol/L Carbon Dioxide 21 L (22-30) mmol/L Creatinine 2.0 H (0.8-1.3) mg/dL Glucose 230 H (75-100) mg/dL POC Glucose (70-105) mg/dL Hemoglobin A1c (4-6) % Lactic Acid 3.30 H* (0.7-2.0) mmol/L Calcium 8.3 L (8.4-10.2) mg/dL Alkaline Phosphatase 133 H (35-129) units/L Ammonia (25-60) umol/L Albumin 3.1 L (3.9-5) g/dL Salicylates (2.8-20.0) mg/dL Acetaminophen (10.0-30.0) ug/mL 02/07/21 02/07/21 02/07/21 Range/Units 19:53 19:53 19:53 WBC (4.5-11.0) K/mm3 RBC (3.65-5.03) M/mm3 Hgb (11.8-15.2) gm/dl Hct (35.5-45.6) % MCV (84-94) fl MCH (28-32) pg RDW (13.2-15.2) % Plt Count (140-440) K/mm3 Lymph % (Auto) (13.4-35.0) % [place] % (Auto) (0.0-7.3) % Lymph # (Auto) (1.2-5.4) K/mm3 Seg Neutrophils % (40.0-70.0) % PT (12.2-14.9) Sec. INR (0.87-1.13) VBG pH 7.464 H (7.320-7.420) Sodium (137-145) mmol/L Chloride (98-107) mmol/L Carbon Dioxide (22-30) mmol/L Creatinine (0.8-1.3) mg/dL Glucose (75-100) mg/dL POC Glucose (70-105) mg/dL Hemoglobin A1c (4-6) % Lactic Acid (0.7-2.0) mmol/L Calcium (8.4-10.2) mg/dL Alkaline Phosphatase (35-129) units/L Ammonia 23.0 L (25-60) umol/L Albumin (3.9-5) g/dL Salicylates < 0.3 L (2.8-20.0) mg/dL Acetaminophen (10.0-30.0) ug/mL 02/07/21 02/07/21 02/08/21 Range/Units 19:53 19:53 04:47 WBC 3.6 L (4.5-11.0) K/mm3 RBC 3.57 L (3.65-5.03) M/mm3 Hgb 8.9 L (11.8-15.2) gm/dl Hct 27.2 L (35.5-45.6) % MCV 76 L (84-94) fl MCH 25 L (28-32) pg RDW 16.6 H (13.2-15.2) % Plt Count 61 L (140-440) K/mm3 Lymph % (Auto) (13.4-35.0) % [place] % (Auto) 12.3 H (0.0-7.3) % Lymph # (Auto) 0.6 L (1.2-5.4) K/mm3 Seg Neutrophils % (40.0-70.0) % PT (12.2-14.9) Sec. INR (0.87-1.13) VBG pH (7.320-7.420) Sodium (137-145) mmol/L Chloride (98-107) mmol/L Carbon Dioxide (22-30) mmol/L Creatinine (0.8-1.3) mg/dL Glucose (75-100) mg/dL POC Glucose (70-105) mg/dL Hemoglobin A1c 10.6 H (4-6) % Lactic Acid (0.7-2.0) mmol/L Calcium (8.4-10.2) mg/dL Alkaline Phosphatase (35-129) units/L Ammonia (25-60) umol/L Albumin (3.9-5) g/dL Salicylates (2.8-20.0) mg/dL Acetaminophen 5.0 L (10.0-30.0) ug/mL 02/08/21 02/08/21 02/08/21 Range/Units 04:47 04:47 07:24 WBC (4.5-11.0) K/mm3 RBC (3.65-5.03) M/mm3 Hgb (11.8-15.2) gm/dl Hct (35.5-45.6) % MCV (84-94) fl MCH (28-32) pg RDW (13.2-15.2) % Plt Count (140-440) K/mm3 Lymph % (Auto) (13.4-35.0) % [place] % (Auto) (0.0-7.3) % Lymph # (Auto) (1.2-5.4) K/mm3 Seg Neutrophils % (40.0-70.0) % PT 16.2 H (12.2-14.9) Sec. INR 1.30 H (0.87-1.13) VBG pH (7.320-7.420) Sodium 131 L (137-145) mmol/L Chloride (98-107) mmol/L Carbon Dioxide 20 L (22-30) mmol/L Creatinine 1.6 H (0.8-1.3) mg/dL Glucose 169 H (75-100) mg/dL POC Glucose 197 H (70-105) mg/dL Hemoglobin A1c (4-6) % Lactic Acid (0.7-2.0) mmol/L Calcium 7.3 L (8.4-10.2) mg/dL Alkaline Phosphatase (35-129) units/L Ammonia (25-60) umol/L Albumin (3.9-5) g/dL Salicylates (2.8-20.0) mg/dL Acetaminophen (10.0-30.0) ug/mL 02/08/21 Range/Units 11:11 WBC (4.5-11.0) K/mm3 RBC (3.65-5.03) M/mm3 Hgb (11.8-15.2) gm/dl Hct (35.5-45.6) % MCV (84-94) fl MCH (28-32) pg RDW (13.2-15.2) % Plt Count (140-440) K/mm3 Lymph % (Auto) (13.4-35.0) % [place] % (Auto) (0.0-7.3) % Lymph # (Auto) (1.2-5.4) K/mm3 Seg Neutrophils % (40.0-70.0) % PT (12.2-14.9) Sec. INR (0.87-1.13) VBG pH (7.320-7.420) Sodium (137-145) mmol/L Chloride (98-107) mmol/L Carbon Dioxide (22-30) mmol/L Creatinine (0.8-1.3) mg/dL Glucose (75-100) mg/dL POC Glucose 277 H (70-105) mg/dL Hemoglobin A1c (4-6) % Lactic Acid (0.7-2.0) mmol/L Calcium (8.4-10.2) mg/dL Alkaline Phosphatase (35-129) units/L Ammonia (25-60) umol/L Albumin (3.9-5) g/dL Salicylates (2.8-20.0) mg/dL Acetaminophen (10.0-30.0) ug/mL Assessment and Plan Cultures: 02/07/2021 blood culture: In process A/P: 60-year-old male with diabetes mellitus type 2, gout, history of osteomyelitis of his right foot requiring a transmetatarsal amputation in the past, chronic alcohol abuse, chronic thrombocytopenia which has been evaluated by hematology and attributed to alcohol abuse came into the emergency room with complaints of multiple falls. 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 Patient used to follow-up with the wound care center at [facility] but states he does not have a ride anymore. #ANGEL on CKD: Secondary to longstanding hypertension and poorly controlled diabetes. #Chronic alcohol abuse with associated thrombocytopenia and underlying cirrhosis #Diabetes mellitus type 2, uncontrolled Recs: -Ordered MRI of right foot with contrast -Empiric ceftriaxone for now -ESR and CRP ordered -Recommend wound care Chao Alves MD, FACP [facility] O: [phone] F: [phone]
[2021-02-08] MEDS: cefTRIAXone/NS 2 GM/100 ML 2 GM/100 ML BAG IV SCH (14:53)
--- NOTE | 2021-02-08 16:28 | Magnetic Resonance Report ---
MRI right foot without contrast INDICATION: Osteomyelitis TECHNIQUE: Axial coronal and sagittal images were performed FINDINGS: Diffuse motion artifact limits examination. Soft tissue edema seen throughout the foot soft tissues. Diffuse edema in the soft tissues along the distal aspect of the foot in the region postope rative change and amputation. There is some questionable edema within the remaining proximal metatars als of the great toe second toe. There is overlying soft tissue edema identified. Flexor tendons and extensor tendons appear normal. No definite T1 changes or findings are seen. IMPRESSION: 1. Significantly limited examination due to motion artifact. There is questionable edema within the r emaining proximal right talus second toe metatarsals with overlying diffuse soft tissue edema. Findin gs concerning for early osteomyelitis. No definite T1 changes at this time. 2. Bony infarct and changes within the medial malleolus and distal tibia. Degenerative change of the tibiotalar joint. Signer Name: Moi Giron MD Signed: 02/08/2021 4:24 PM Workstation Name: [id number]
[2021-02-09] MEDS: ACETAMINOPHEN 325 MG TAB PO PRN (00:01)
[2021-02-09] MEDS: INSULIN LISPRO 100 UNIT/ML SUB-Q SCH ×4 (09:14→21:56)
[2021-02-09 09:28] LABS: Calcium 8.1 mg/dL (8.4-10.2)
[2021-02-09] MEDS: SODIUM CHLORIDE 0.9% 1000 ML 1,000 ML IV SCH (09:38)
--- NOTE | 2021-02-09 09:38 | Progress Note ---
Assessment and Plan Assessment and plan: Sepsis. Patient meets criteria given the diagnosis of osteomyelitis, fever, leukopenia, tachycardia and altered mentation. Chronic osteomyelitis/cellulitis. Diabetes mellitus type 2. Hypertension. 02/09/2021. MRI reveals evidence of osteomyelitis. Await ID recommendations with regards to IV antibiotics. Continue Accu-Cheks and sliding scale insulin for tight glycemic control to promote wound healing. Continue antihypertensive medications History Interval history: No new issues overnight. Hospitalist Physical - Constitutional Vitals: Temp Pulse Resp BP Pulse Ox 97.3 F L 80 18 126/78 97 02/09/21 07:52 02/09/21 07:52 02/09/21 07:52 02/09/21 07:51 02/09/21 07:52 General appearance: Present: no acute distress, well-nourished, disheveled - EENT Eyes: Present: PERRL, EOM intact ENT: hearing intact, clear oral mucosa, dentition normal - Neck Neck: Present: supple, normal ROM - Respiratory Respiratory effort: normal Respiratory: bilateral: CTA - Cardiovascular Rhythm: regular Heart Sounds: Present: S1 & S2. Absent: gallop, rub - Extremities Extremities: no ischemia, No edema, Full ROM - Abdominal General gastrointestinal: soft, non-tender, non-distended, normal bowel sounds - Integumentary Integumentary: Present: clear, warm, dry - Neurologic Neurologic: CNII-XII intact, moves all extremities HEART Score - HEART Score Troponin: Troponin T 0.017 ng/mL (0.00-0.029) 02/07/21 19:53 Results - Labs CBC & Chem 7: 02/08/21 04:47 02/09/21 08:31 Labs: Laboratory Last Values WBC 3.6 K/mm3 (4.5-11.0) L 02/08/21 04:47 RBC 3.57 M/mm3 (3.65-5.03) L 02/08/21 04:47 Hgb 8.9 gm/dl (11.8-15.2) L 02/08/21 04:47 Hct 27.2 % (35.5-45.6) L 02/08/21 04:47 MCV 76 fl (84-94) L 02/08/21 04:47 MCH 25 pg (28-32) L 02/08/21 04:47 MCHC 33 % (32-34) 02/08/21 04:47 RDW 16.6 % (13.2-15.2) H 02/08/21 04:47 Plt Count 61 K/mm3 (140-440) L 02/08/21 04:47 Lymph % (Auto) 17.6 % (13.4-35.0) 02/08/21 04:47 [place] % (Auto) 12.3 % (0.0-7.3) H 02/08/21 04:47 Eos % (Auto) 0.5 % (0.0-4.3) 02/08/21 04:47 Baso % (Auto) 0.2 % (0.0-1.8) 02/08/21 04:47 Lymph # (Auto) 0.6 K/mm3 (1.2-5.4) L 02/08/21 04:47 [place] # (Auto) 0.4 K/mm3 (0.0-0.8) 02/08/21 04:47 Eos # (Auto) 0.0 K/mm3 (0.0-0.4) 02/08/21 04:47 Baso # (Auto) 0.0 K/mm3 (0.0-0.1) 02/08/21 04:47 Seg Neutrophils % 69.4 % (40.0-70.0) 02/08/21 04:47 Seg Neutrophils # 2.5 K/mm3 (1.8-7.7) 02/08/21 04:47 ESR 67 mm/Hr (0-20) 02/08/21 14:18 PT 16.2 Sec. (12.2-14.9) H 02/08/21 04:47 INR 1.30 (0.87-1.13) H 02/08/21 04:47 APTT 35.1 Sec. (24.2-36.6) 02/07/21 19:53 VBG pH 7.464 (7.320-7.420) H 02/07/21 19:53 Sodium 134 mmol/L (137-145) L 02/09/21 08:31 Potassium 4.3 mmol/L (3.6-5.0) 02/09/21 08:31 Chloride 101.9 mmol/L (98-107) 02/09/21 08:31 Carbon Dioxide 20 mmol/L (22-30) L 02/09/21 08:31 Anion Gap 16 mmol/L 02/09/21 08:31 BUN 9 mg/dL (9-20) 02/09/21 08:31 Creatinine 1.3 mg/dL (0.8-1.3) 02/09/21 08:31 Estimated GFR 56 ml/min 02/09/21 08:31 BUN/Creatinine Ratio 7 % 02/09/21 08:31 Glucose 181 mg/dL (75-100) H 02/09/21 08:31 POC Glucose 139 mg/dL (70-105) H 02/08/21 21:41 Hemoglobin A1c 10.6 % (4-6) H 02/07/21 19:53 Lactic Acid 1.90 mmol/L (0.7-2.0) 02/07/21 20:34 Calcium 8.1 mg/dL (8.4-10.2) L 02/09/21 08:31 Total Bilirubin 0.60 mg/dL (0.1-1.2) 02/07/21 19:53 AST 12 units/L (5-40) 02/07/21 19:53 ALT 9 units/L (7-56) 02/07/21 19:53 Alkaline Phosphatase 133 units/L (35-129) H 02/07/21 19:53 Ammonia 23.0 umol/L (25-60) L 02/07/21 19:53 Troponin T 0.017 ng/mL (0.00-0.029) 02/07/21 19:53 C-Reactive Protein 10.10 mg/dL (0.00-1.30) H 02/08/21 14:18 Total Protein 6.9 g/dL (6.3-8.2) 02/07/21 19:53 Albumin 3.1 g/dL (3.9-5) L 02/07/21 19:53 Albumin/Globulin Ratio 0.8 % 02/07/21 19:53 Urine Color Yellow (Yellow) 02/07/21 08:56 Urine Turbidity Clear (Clear) 02/07/21 08:56 Urine pH 6.0 (5.0-7.0) 02/07/21 08:56 Ur Specific [place] 1.005 (1.003-1.030) 02/07/21 08:56 Urine Protein 30 mg/dl mg/dL (Negative) 02/07/21 08:56 Urine Glucose (UA) >=500 mg/dL (Negative) 02/07/21 08:56 Urine Ketones Neg mg/dL (Negative) 02/07/21 08:56 Urine Blood Sm (Negative) 02/07/21 08:56 Urine Nitrite Neg (Negative) 02/07/21 08:56 Urine Bilirubin Neg (Negative) 02/07/21 08:56 Urine Urobilinogen < 2.0 mg/dL (<2.0) 02/07/21 08:56 Ur Leukocyte Esterase Neg (Negative) 02/07/21 08:56 Urine WBC (Auto) < 1.0 /HPF (0.0-6.0) 02/07/21 08:56 Urine RBC (Auto) 1.0 /HPF (0.0-6.0) 02/07/21 08:56 Hyaline Casts 1 /LPF 02/07/21 08:56 Urine Mucus Few /HPF 02/07/21 08:56 Salicylates < 0.3 mg/dL (2.8-20.0) L 02/07/21 19:53 Acetaminophen 5.0 ug/mL (10.0-30.0) L 02/07/21 19:53 Microbiology: Microbiology 02/07/21 19:53 Peripheral/Venous Blood Culture - Preliminary NO GROWTH AFTER 24 HOURS 02/07/21 19:53 Peripheral/Venous Blood Culture - Preliminary NO GROWTH AFTER 24 HOURS Devine/IV: Voiding Method Urinal Active Medications - Current Medications Current Medications: Generic Name Dose Route Start Last Admin Trade Name Freq PRN Reason Stop Dose Admin Acetaminophen 650 mg 02/07/21 22:49 02/09/21 00:01 Acetaminophen 325 Mg Tab PO 650 mg Q4H PRN Administration Pain MILD(1-3)/Fever >100.5/JETT Dextrose 50 ml 02/07/21 22:49 Dextrose 50% In Water (25gm) 50 Ml Syringe IV Q30MIN PRN Hypoglycemia Protocol Sodium Chloride 1,000 mls @ 125 mls/hr 02/07/21 23:00 02/08/21 14:11 Nacl 0.9% 1000 Ml IV 125 mls/hr DIRECT KRISSY Administration Ceftriaxone Sodium 2 gm in 100 mls @ 200 mls/hr 02/08/21 15:00 02/08/21 14:53 Rocephin/Ns 2 Gm/100 Ml IV 200 mls/hr Q24H KRISSY Administration Protocol Insulin Human Lispro 0 unit 02/08/21 07:30 02/09/21 09:14 Insulin Lispro 100 Unit/Ml SUB-Q Not Given ACHS KRISSY Protocol Magnesium Hydroxide 30 ml 02/07/21 22:49 Magnesium Hydroxide (Mom) Oral Liqd Udc PO Q4H PRN Constipation Morphine Sulfate 2 mg 02/07/21 22:49 Morphine 2 Mg/1 Ml Inj IV Q4H PRN Pain, Moderate (4-6) Ondansetron HCl 4 mg 02/07/21 22:49 Ondansetron 4 Mg/2 Ml Inj IV Q8H PRN Nausea And Vomiting Sodium Chloride 10 ml 02/08/21 10:00 02/08/21 22:12 Sodium Chloride 0.9% 10 Ml Flush Syringe IV 10 ml BID KRISSY Administration Sodium Chloride 10 ml 02/07/21 22:49 Sodium Chloride 0.9% 10 Ml Flush Syringe IV PRN PRN LINE FLUSH Nutrition/Malnutrition Assess - Dietary Evaluation Nutrition/Malnutrition Findings: Nutrition Notes Start: 02/08/21 13:42 Freq: Status: Active Protocol: Document 02/08/21 13:42 (Rec: 02/08/21 13:45 [email or web address]) Nutrition Notes Need for Assessment generated from: MD Order,cuff setter Initial or Follow up Brief Note Current Diagnosis Acute Kidney Injury,Diabetes, Hypertension Other Pertinent Diagnosis Hep C, SIRS, hx of R foot amputation Current Diet Cardiac/Consistent CHO Subjective/Other Information RN screen for chewing difficulty, skin risk and MD order for diet education. Cuate score 19. Pt with foot wound. Pt reports no issues chewing and can gum most foods . He states he lives in the [facility] and his meals are provided through a [place] [facility] facility where he does not get options of what he eats. Not appropriate for diet education . Pt is eating 100% of meals and would like double fruit/ vegetable portions. Nutrition Intervention Revisit per MD consult or patient Sign Off request:
--- NOTE | 2021-02-09 12:33 | Progress Note ---
Assessment and Plan Cultures: 02/07/2021 blood culture: no growth A/P: 60-year-old male with diabetes mellitus type 2, gout, history of osteomyelitis of his right foot requiring a transmetatarsal amputation in the past, chronic al cohol abuse, chronic thrombocytopenia which has been evaluated by hematology and attributed to alcohol abuse came into the emergency room with complaints of multiple falls. 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 Patient used to follow-up with the wound care center at [facility] but states he does not have a ride anymore. MRI with possible early osteomyelitis. CRP 10.1, ESR 67. #ANGEL on CKD: Secondary to longstanding hypertension and poorly controlled diabetes. #Chronic alcohol abuse with associated thrombocytopenia and underlying cirrhosis #Diabetes mellitus type 2, uncontrolled Recs: -Continue IV ceftriaxone, vancomycin -vancomycin target trough: 10-20 mcg/ml -Wound culture ordered -Vascular studies ordered Chao Alves MD, FACP [facility] ([facility] O: [phone] F: [phone] Subjective Date of service: 02/09/21 Interval history: Low grade fever. Eating lunch. No complaints. Objective - Exam Narrative Exam: Physical Exam: Constitutional: Alert, cooperative. No acute distress Head, Ears, Nose: Normocephalic, atraumatic. External ears, nose normal Eyes: Conjunctivae/corneas clear. No icterus. No ptosis. Neck: Supple, no meningeal signs Cardiovascular: S1, S2 normal. Respiratory: Good air entry, clear to auscultation bilaterally GI: Soft, non-tender; bowel sounds normal. No peritoneal signs Musculoskeletal: R TMA wound+ Skin: No rash or abscess Hem/Lymphatic: No palpable cervical or supraclavicular nodes. No lymphangitis Psych: Mood ok. Affect normal Neurological: Awake, alert, oriented. No gross abnormality - Constitutional Vitals: Vital Signs Temp Pulse Resp BP Pulse Ox 97.8 F 76 18 138/91 98 02/09/21 11:31 02/09/21 11:31 02/09/21 11:31 02/09/21 11:31 02/09/21 11:31 Temperature -Last 24 Hours Temperature 97.8 F Temperature 97.3 F Temperature 97.3 F Temperature 97.5 F Temperature 100.6 F Temperature 98.6 F Temperature 98.7 F - Labs CBC & Chem 7: 02/08/21 04:47 02/09/21 08:31 Labs: Abnormal lab results 02/08/21 02/08/21 02/08/21 Range/Units 11:11 14:18 16:19 Sodium (137-145) mmol/L Carbon Dioxide (22-30) mmol/L Glucose (75-100) mg/dL POC Glucose 277 H 239 H (70-105) mg/dL Calcium (8.4-10.2) mg/dL C-Reactive Protein 10.10 H (0.00-1.30) mg/dL 02/08/21 02/09/21 02/09/21 Range/Units 21:41 07:56 08:31 Sodium 134 L (137-145) mmol/L Carbon Dioxide 20 L (22-30) mmol/L Glucose 181 H (75-100) mg/dL POC Glucose 139 H 141 H (70-105) mg/dL Calcium 8.1 L (8.4-10.2) mg/dL C-Reactive Protein (0.00-1.30) mg/dL
--- NOTE | 2021-02-09 14:10 | Vascular Lab Report ---
DUPLEX DOPPLER LOWER EXTREMITY ARTERIAL, BILATERAL INDICATION: Bilateral lower extremity ulcers with right lower extremity osteomyelitis. History of diabetes. TECHNIQUE: Arterial duplex examination of both lower extremities performed using B-mode, color flow and spectral Doppler assessment. FINDINGS: RIGHT: Common Femoral Artery: PSV 83 cm/sec. Triphasic waveform. Proximal SFA: PSV 90 cm/sec. Triphasic waveform. Mid SFA: PSV 122 cm/sec. Triphasic waveform. Distal SFA: PSV 79 cm/sec. Triphasic waveform. Popliteal artery: PSV 92 cm/sec. Triphasic waveform. Posterior tibial artery: PSV 112 cm/sec. Biphasic waveform. Dorsalis Pedis Artery: PSV 50 cm/sec. Triphasic waveform. LEFT: Common Femoral Artery: PSV 108 cm/sec. Triphasic waveform. Proximal SFA: PSV 106 cm/sec. Triphasic waveform. Mid SFA: PSV 141 cm/sec. Biphasic waveform. Distal SFA: PSV 116 cm/sec. Triphasic waveform. Popliteal artery: PSV 91 cm/sec. Biphasic waveform. Posterior tibial artery: PSV 131 cm/sec. Biphasic waveform. Dorsalis Pedis Artery: PSV 100 cm/sec. Triphasic waveform. IMPRESSION: 1. No hemodynamically significant significant lower extremity peripheral artery disease. Signer Name: Herman Mancuso MD Signed: 02/09/2021 2:06 PM Workstation Name: [id number]
--- NOTE | 2021-02-09 15:19 | Progress Note ---
Assessment and Plan # ANGEL: likely with CKD 2/2 DM, HTN, baseline creatinine appears around 1.4. Creatinine improved 2.0->1.6->1.3 with IVF, likely with pre-renal injury +/- tubular injury with infection - continue IVF as able, encourage po hydration otherwise - avoid nephrotoxins - defer ultrasound, serologies, urine studies given recent workup at [facility] (re viewed EPIC charting) - would benefit from SAMANTHA/ARB as outpatient, hold now given ANGEL, normotension - renally dose meds - needs CKD follow up/education on discharge, previously saw Dr. Baptiste at [facility], has not seen outpatient # Sepsis, Chronic osteomyelitis/cellulitis: ID recs noted, appreciate input # Diabetes mellitus type 2: management per primary. No proteinuria noted on prior workup # HTN: BP stable, currently off meds # Hyponatremia: mild, improved 128->133->134 with NS, likely ANGEL/pre-renal related, follow # Anemia: likely due to acute illness Subjective Date of service: 02/09/21 Interval history: No acute issues noted, still feels tired but "ok" Objective - Exam Narrative Exam: Constitutional: Alert, cooperative. No acute distress Head: Normocephalic, atraumatic Eyes: No icterus. Neck: Supple Cardiovascular: S1, S2 normal. Respiratory: clear to auscultation bilaterally GI: Soft, non-tender; bowel sounds normal Musculoskeletal: No pedal edema Skin: intact Neurological: Awake, alert, oriented. No focal deficits - Vital Signs Vital signs: Vital Signs - 12hr 02/09/21 02/09/21 02/09/21 03:51 07:51 07:52 Temperature 97.5 F L 97.3 F L 97.3 F L Pulse Rate 69 80 80 Respiratory 18 18 18 Rate Blood Pressure 139/79 126/78 O2 Sat by Pulse 97 97 97 Oximetry 02/09/21 11:31 Temperature 97.8 F Pulse Rate 76 Respiratory 18 Rate Blood Pressure 138/91 O2 Sat by Pulse 98 Oximetry - Lab 02/08/21 04:47 02/09/21 08:31 Most recent lab results Calcium 8.1 mg/dL (8.4-10.2) L 02/09/21 08:31 Medications & Allergies - Medications Allergies/Adverse Reactions: Allergies No Known Allergies Allergy (Verified 02/07/21 22:57) Active Medications: Generic Name Dose Route Start Last Admin Trade Name Alek PRN Reason Stop Dose Admin Acetaminophen 650 mg 02/07/21 22:49 02/09/21 00:01 Acetaminophen 325 Mg Tab PO 650 mg Q4H PRN Administration Pain MILD(1-3)/Fever >100.5/JETT Dextrose 50 ml 02/07/21 22:49 Dextrose 50% In Water (25gm) 50 Ml Syringe IV Q30MIN PRN Hypoglycemia Protocol Sodium Chloride 1,000 mls @ 125 mls/hr 02/07/21 23:00 02/09/21 09:38 Nacl 0.9% 1000 Ml IV 125 mls/hr DIRECT KRISSY Administration Ceftriaxone Sodium 2 gm in 100 mls @ 200 mls/hr 02/08/21 15:00 02/08/21 14:53 Rocephin/Ns 2 Gm/100 Ml IV 200 mls/hr Q24H KRISSY Administration Protocol Insulin Human Lispro 0 unit 02/08/21 07:30 02/09/21 12:25 Insulin Lispro 100 Unit/Ml SUB-Q 1 unit ACHS KRISSY Administration Protocol Magnesium Hydroxide 30 ml 02/07/21 22:49 Magnesium Hydroxide (Mom) Oral Liqd Udc PO Q4H PRN Constipation Morphine Sulfate 2 mg 02/07/21 22:49 Morphine 2 Mg/1 Ml Inj IV Q4H PRN Pain, Moderate (4-6) Ondansetron HCl 4 mg 02/07/21 22:49 Ondansetron 4 Mg/2 Ml Inj IV Q8H PRN Nausea And Vomiting Sodium Chloride 10 ml 02/08/21 10:00 02/09/21 09:46 Sodium Chloride 0.9% 10 Ml Flush Syringe IV 10 ml BID KRISSY Administration Sodium Chloride 10 ml 02/07/21 22:49 Sodium Chloride 0.9% 10 Ml Flush Syringe IV PRN PRN LINE FLUSH
[2021-02-09] MEDS: cefTRIAXone/NS 2 GM/100 ML 2 GM/100 ML BAG IV SCH (18:52)
[2021-02-10 05:47] LABS: Basophils % (Auto) 0.3 % (0.0-1.8); Eosinophils % (Auto) 0.4 % (0.0-4.3); Hematocrit 29.5 % (35.5-45.6); Hemoglobin 9.6 gm/dl (11.8-15.2); Lymphocytes # (Auto) 0.8 K/mm3 (1.2-5.4); Lymphocytes % (Auto) 21.7 % (13.4-35.0); Mean Corpuscular HGB Conc 33 % (32-34); Mean Corpuscular Volume 76 fl (84-94); Monocytes # (Auto) 0.6 K/mm3 (0.0-0.8); Monocytes % (Auto) 15.2 % (0.0-7.3); Red Blood Count 3.87 M/mm3 (3.65-5.03); Red Cell Distribution Width 17.2 % (13.2-15.2)
[2021-02-10 05:50] LABS: Platelet Count 79 K/mm3 (140-440)
[2021-02-10 06:05] LABS: Calcium 7.9 mg/dL (8.4-10.2)
[2021-02-10] MEDS: INSULIN LISPRO 100 UNIT/ML SUB-Q SCH ×4 (08:54→22:32)
--- NOTE | 2021-02-10 09:26 | Progress Note ---
Assessment and Plan Assessment and plan: Sepsis. Patient meets criteria given the diagnosis of osteomyelitis, fever, leukopenia, tachycardia and altered mentation. Right foot osteomyelitis. Diabetes mellitus type 2. Hypertension. 02/09/2021. MRI reveals evidence of osteomyelitis. Await ID recommendations with regards to IV antibiotics. Continue Accu-Cheks and sliding scale insulin for tight glycemic control to promote wound healing. Continue antihypertensive medications 02/10/2021. Continue IV antibiotics. Wound culture pending. Follow-up vascular studies. Continue Accu-Cheks and sliding scale insulin for tight glycemic control to promote wound healing. History Interval history: No new issues overnight. Hospitalist Physical - Constitutional Vitals: Temp Pulse Resp BP Pulse Ox 98.7 F 78 19 121/44 94 02/10/21 04:50 02/10/21 04:50 02/10/21 04:50 02/10/21 04:50 02/10/21 04:50 General appearance: Present: no acute distress, well-nourished, disheveled - EENT Eyes: Present: PERRL, EOM intact ENT: hearing intact, clear oral mucosa, dentition normal - Neck Neck: Present: supple, normal ROM - Respiratory Respiratory effort: normal Respiratory: bilateral: CTA - Cardiovascular Rhythm: regular Heart Sounds: Present: S1 & S2. Absent: gallop, rub - Extremities Extremities: no ischemia, No edema, Full ROM - Abdominal General gastrointestinal: soft, non-tender, non-distended, normal bowel sounds - Integumentary Integumentary: Present: clear, warm, dry - Neurologic Neurologic: CNII-XII intact, moves all extremities HEART Score - HEART Score Troponin: Troponin T 0.017 ng/mL (0.00-0.029) 02/07/21 19:53 Results - Labs CBC & Chem 7: 02/10/21 04:13 02/10/21 04:13 Labs: Laboratory Last Values WBC 3.7 K/mm3 (4.5-11.0) L 02/10/21 04:13 RBC 3.87 M/mm3 (3.65-5.03) 02/10/21 04:13 Hgb 9.6 gm/dl (11.8-15.2) L 02/10/21 04:13 Hct 29.5 % (35.5-45.6) L 02/10/21 04:13 MCV 76 fl (84-94) L 02/10/21 04:13 MCH 25 pg (28-32) L 02/10/21 04:13 MCHC 33 % (32-34) 02/10/21 04:13 RDW 17.2 % (13.2-15.2) H 02/10/21 04:13 Plt Count 79 K/mm3 (140-440) L 02/10/21 04:13 Lymph % (Auto) 21.7 % (13.4-35.0) 02/10/21 04:13 [place] % (Auto) 15.2 % (0.0-7.3) H 02/10/21 04:13 Eos % (Auto) 0.4 % (0.0-4.3) 02/10/21 04:13 Baso % (Auto) 0.3 % (0.0-1.8) 02/10/21 04:13 Lymph # (Auto) 0.8 K/mm3 (1.2-5.4) L 02/10/21 04:13 [place] # (Auto) 0.6 K/mm3 (0.0-0.8) 02/10/21 04:13 Eos # (Auto) 0.0 K/mm3 (0.0-0.4) 02/10/21 04:13 Baso # (Auto) 0.0 K/mm3 (0.0-0.1) 02/10/21 04:13 Seg Neutrophils % 62.4 % (40.0-70.0) 02/10/21 04:13 Seg Neutrophils # 2.3 K/mm3 (1.8-7.7) 02/10/21 04:13 ESR 67 mm/Hr (0-20) 02/08/21 14:18 PT 16.2 Sec. (12.2-14.9) H 02/08/21 04:47 INR 1.30 (0.87-1.13) H 02/08/21 04:47 APTT 35.1 Sec. (24.2-36.6) 02/07/21 19:53 VBG pH 7.464 (7.320-7.420) H 02/07/21 19:53 Sodium 131 mmol/L (137-145) L 02/10/21 04:13 Potassium 4.0 mmol/L (3.6-5.0) 02/10/21 04:13 Chloride 99.5 mmol/L (98-107) 02/10/21 04:13 Carbon Dioxide 22 mmol/L (22-30) 02/10/21 04:13 Anion Gap 14 mmol/L 02/10/21 04:13 BUN 8 mg/dL (9-20) L 02/10/21 04:13 Creatinine 1.3 mg/dL (0.8-1.3) 02/10/21 04:13 Estimated GFR 56 ml/min 02/10/21 04:13 BUN/Creatinine Ratio 6 % 02/10/21 04:13 Glucose 182 mg/dL (75-100) H 02/10/21 04:13 POC Glucose 232 mg/dL (70-105) H 02/09/21 21:33 Hemoglobin A1c 10.6 % (4-6) H 02/07/21 19:53 Lactic Acid 1.90 mmol/L (0.7-2.0) 02/07/21 20:34 Calcium 7.9 mg/dL (8.4-10.2) L 02/10/21 04:13 Total Bilirubin 0.60 mg/dL (0.1-1.2) 02/07/21 19:53 AST 12 units/L (5-40) 02/07/21 19:53 ALT 9 units/L (7-56) 02/07/21 19:53 Alkaline Phosphatase 133 units/L (35-129) H 02/07/21 19:53 Ammonia 23.0 umol/L (25-60) L 02/07/21 19:53 Troponin T 0.017 ng/mL (0.00-0.029) 02/07/21 19:53 C-Reactive Protein 10.10 mg/dL (0.00-1.30) H 02/08/21 14:18 Total Protein 6.9 g/dL (6.3-8.2) 02/07/21 19:53 Albumin 3.1 g/dL (3.9-5) L 02/07/21 19:53 Albumin/Globulin Ratio 0.8 % 02/07/21 19:53 Urine Color Yellow (Yellow) 02/07/21 08:56 Urine Turbidity Clear (Clear) 02/07/21 08:56 Urine pH 6.0 (5.0-7.0) 02/07/21 08:56 Ur Specific [place] 1.005 (1.003-1.030) 02/07/21 08:56 Urine Protein 30 mg/dl mg/dL (Negative) 02/07/21 08:56 Urine Glucose (UA) >=500 mg/dL (Negative) 02/07/21 08:56 Urine Ketones Neg mg/dL (Negative) 02/07/21 08:56 Urine Blood Sm (Negative) 02/07/21 08:56 Urine Nitrite Neg (Negative) 02/07/21 08:56 Urine Bilirubin Neg (Negative) 02/07/21 08:56 Urine Urobilinogen < 2.0 mg/dL (<2.0) 02/07/21 08:56 Ur Leukocyte Esterase Neg (Negative) 02/07/21 08:56 Urine WBC (Auto) < 1.0 /HPF (0.0-6.0) 02/07/21 08:56 Urine RBC (Auto) 1.0 /HPF (0.0-6.0) 02/07/21 08:56 Hyaline Casts 1 /LPF 02/07/21 08:56 Urine Mucus Few /HPF 02/07/21 08:56 Salicylates < 0.3 mg/dL (2.8-20.0) L 02/07/21 19:53 Acetaminophen 5.0 ug/mL (10.0-30.0) L 02/07/21 19:53 Microbiology: Microbiology 02/07/21 19:53 Peripheral/Venous Blood Culture - Preliminary NO GROWTH AFTER 48 HOURS 02/07/21 19:53 Peripheral/Venous Blood Culture - Preliminary NO GROWTH AFTER 48 HOURS Devine/IV: Voiding Method Urinal Active Medications - Current Medications Current Medications: Generic Name Dose Route Start Last Admin Trade Name Freq PRN Reason Stop Dose Admin Acetaminophen 650 mg 02/07/21 22:49 02/09/21 00:01 Acetaminophen 325 Mg Tab PO 650 mg Q4H PRN Administration Pain MILD(1-3)/Fever >100.5/JETT Dextrose 50 ml 02/07/21 22:49 Dextrose 50% In Water (25gm) 50 Ml Syringe IV Q30MIN PRN Hypoglycemia Protocol Sodium Chloride 1,000 mls @ 125 mls/hr 02/07/21 23:00 02/09/21 09:38 Nacl 0.9% 1000 Ml IV 125 mls/hr DIRECT KRISSY Administration Ceftriaxone Sodium 2 gm in 100 mls @ 200 mls/hr 02/08/21 15:00 02/09/21 18:52 Rocephin/Ns 2 Gm/100 Ml IV 200 mls/hr Q24H KRISSY Administration Protocol Insulin Human Lispro 0 unit 02/08/21 07:30 02/10/21 08:54 Insulin Lispro 100 Unit/Ml SUB-Q 2 unit ACHS KRISSY Administration Protocol Magnesium Hydroxide 30 ml 02/07/21 22:49 Magnesium Hydroxide (Mom) Oral Liqd Udc PO Q4H PRN Constipation Morphine Sulfate 2 mg 02/07/21 22:49 Morphine 2 Mg/1 Ml Inj IV Q4H PRN Pain, Moderate (4-6) Ondansetron HCl 4 mg 02/07/21 22:49 Ondansetron 4 Mg/2 Ml Inj IV Q8H PRN Nausea And Vomiting Sodium Chloride 10 ml 02/08/21 10:00 02/09/21 21:56 Sodium Chloride 0.9% 10 Ml Flush Syringe IV 10 ml BID KRISSY Administration Sodium Chloride 10 ml 02/07/21 22:49 Sodium Chloride 0.9% 10 Ml Flush Syringe IV PRN PRN LINE FLUSH Nutrition/Malnutrition Assess - Dietary Evaluation Nutrition/Malnutrition Findings: Nutrition Notes Start: 02/08/21 13:42 Freq: Status: Active Protocol: Document 02/08/21 13:42 (Rec: 02/08/21 13:45 [email or web address]) Nutrition Notes Need for Assessment generated from: MD Order,jewel waxer Initial or Follow up Brief Note Current Diagnosis Acute Kidney Injury,Diabetes, Hypertension Other Pertinent Diagnosis Hep C, SIRS, hx of R foot amputation Current Diet Cardiac/Consistent CHO Subjective/Other Information RN screen for chewing difficulty, skin risk and MD order for diet education. Cuate score 19. Pt with foot wound. Pt reports no issues chewing and can gum most foods . He states he lives in the [place] and his meals [place] provided through a [place] facility where he does not get options of what he eats. Not appropriate for diet education . Pt is eating 100% of meals and would like double fruit/ vegetable portions. Nutrition Intervention Revisit per MD consult or patient Sign Off request:
--- NOTE | 2021-02-10 09:45 | Progress Note ---
Assessment and Plan # ANGEL: likely with CKD 2/2 DM, HTN, baseline creatinine appears around 1.4. Creatinine improved 2.0->1.6->1.3 this AM with IVF, likely with pre-renal injury +/- tubular injury with infection - continue IVF as able, encourage po hydration/solute intake otherwise - avoid nephrotoxins - defer ultrasound, serologies, urine studies given recent workup at [facility] (reviewed EPIC charting) - would benefit from SAMANTHA/ARB as outpatient, hold now given ANGEL, normotension - renally dose meds - needs CKD follow up/education on discharge, previously saw Dr. Baptiste at [facility], has not seen outpatient # Sepsis, Chronic osteomyelitis/cellulitis: ID recs noted, appreciate input # Diabetes mellitus type 2: management per primary. No proteinuria noted on prior workup # HTN: BP stable, currently off meds # Hyponatremia: mild, improved 128->133->134 with NS, likely ANGEL/pre-renal related, follow, lower to 131 # Anemia: likely due to acute illness Subjective Date of service: 02/10/21 Interval history: No acute issues noted Objective - Exam Narrative Exam: Constitutional: Alert, cooperative. No acute distress Head: Normocephalic, atraumatic Eyes: No icterus. Neck: Supple Cardiovascular: S1, S2 normal. Respiratory: clear to auscultation bilaterally GI: Soft, non-tender; bowel sounds normal Musculoskeletal: No pedal edema Skin: intact Neurological: Awake, alert, oriented. No focal deficits - Vital Signs Vital signs: Vital Signs - 12hr 02/10/21 02/10/21 00:37 04:50 Temperature 98.5 F 98.7 F Pulse Rate 77 78 Respiratory 18 19 Rate Blood Pressure 140/77 121/44 O2 Sat by Pulse 94 94 Oximetry - Lab 02/10/21 04:13 02/10/21 04:13 Most recent lab results Calcium 7.9 mg/dL (8.4-10.2) L 02/10/21 04:13 Medications & Allergies - Medications Allergies/Adverse Reactions: Allergies No Known Allergies Allergy (Verified 02/07/21 22:57) Active Medications: Generic Name Dose Route Start Last Admin Trade Name Freq PRN Reason Stop Dose Admin Acetaminophen 650 mg 02/07/21 22:49 02/09/21 00:01 Acetaminophen 325 Mg Tab PO 650 mg Q4H PRN Administration Pain MILD(1-3)/Fever >100.5/JETT Dextrose 50 ml 02/07/21 22:49 Dextrose 50% In Water (25gm) 50 Ml Syringe IV Q30MIN PRN Hypoglycemia Protocol Sodium Chloride 1,000 mls @ 125 mls/hr 02/07/21 23:00 02/09/21 09:38 Nacl 0.9% 1000 Ml IV 125 mls/hr DIRECT KRISSY Administration Ceftriaxone Sodium 2 gm in 100 mls @ 200 mls/hr 02/08/21 15:00 02/09/21 18:52 Rocephin/Ns 2 Gm/100 Ml IV 200 mls/hr Q24H KRISSY Administration Protocol Insulin Human Lispro 0 unit 02/08/21 07:30 02/10/21 08:54 Insulin Lispro 100 Unit/Ml SUB-Q 2 unit ACHS KRISSY Administration Protocol Magnesium Hydroxide 30 ml 02/07/21 22:49 Magnesium Hydroxide (Mom) Oral Liqd Udc PO Q4H PRN Constipation Morphine Sulfate 2 mg 02/07/21 22:49 Morphine 2 Mg/1 Ml Inj IV Q4H PRN Pain, Moderate (4-6) Ondansetron HCl 4 mg 02/07/21 22:49 Ondansetron 4 Mg/2 Ml Inj IV Q8H PRN Nausea And Vomiting Sodium Chloride 10 ml 02/08/21 10:00 02/09/21 21:56 Sodium Chloride 0.9% 10 Ml Flush Syringe IV 10 ml BID KRISSY Administration Sodium Chloride 10 ml 02/07/21 22:49 Sodium Chloride 0.9% 10 Ml Flush Syringe IV PRN PRN LINE FLUSH
--- NOTE | 2021-02-10 10:32 | Electrocardiograph Report ---
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
--- NOTE | 2021-02-10 10:57 | Progress Note ---
Assessment and Plan Cultures: 02/07/2021 blood culture: no growth A/P: 60-year-old male with diabetes mellitus type 2, gout, history of osteomyelitis of his right foot requiring a transmetatarsal amputation in the past, chronic al cohol abuse, chronic thrombocytopenia which has been evaluated by hematology and attributed to alcohol abuse came into the emergency room with complaints of multiple falls. 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 Patient used to follow-up with the wound care center at [facility] but states he does not have a ride anymore. MRI with possible early osteomyelitis. CRP 10.1, ESR 67. Vascular study without significant arterial insufficiency. #ANGEL on CKD: Secondary to longstanding hypertension and poorly controlled diabetes. Improved. #Chronic alcohol abuse with associated thrombocytopenia and underlying cirrhosis #Diabetes mellitus type 2, uncontrolled Recs: -Continue IV ceftriaxone, vancomycin -vancomycin target trough: 10-20 mcg/ml -Wound culture ordered but not done yet, hence will need to treat with broad spectrum abx -Will order PICC line -Case management orders placed: IV ceftriaxone plus vancomycin for 6 weeks ending 03/22/2021 Patient agreeable with plan. Chao Alves MD, FACP [facility] ([facility] O: [phone] F: [phone] Subjective Date of service: 02/10/21 Interval history: Low grade fever. No complaints. Walking with PT Objective - Exam Narrative Exam: Physical Exam: Constitutional: Alert, cooperative. No acute distress Head, Ears, Nose: Normocephalic, atraumatic. External ears, nose normal Eyes: Conjunctivae/corneas clear. No icterus. No ptosis. Neck: Supple, no meningeal signs Cardiovascular: S1, S2 normal. Respiratory: Good air entry, clear to auscultation bilaterally GI: Soft, non-tender; bowel sounds normal. No peritoneal signs Musculoskeletal: R TMA wound+ Skin: No rash or abscess Hem/Lymphatic: No palpable cervical or supraclavicular nodes. No lymphangitis Psych: Mood ok. Affect normal Neurological: Awake, alert, oriented. No gross abnormality - Constitutional Vitals: Vital Signs Temp Pulse Resp BP Pulse Ox 98.7 F 78 19 121/44 94 02/10/21 04:50 02/10/21 04:50 02/10/21 04:50 02/10/21 04:50 02/10/21 04:50 Temperature -Last 24 Hours Temperature 98.7 F Temperature 98.5 F Temperature 98.4 F Temperature 97.5 F Temperature 97.8 F - Labs CBC & Chem 7: 02/10/21 04:13 02/10/21 04:13 Labs: Abnormal lab results 02/09/21 02/09/21 02/09/21 Range/Units 07:56 11:37 16:35 WBC (4.5-11.0) K/mm3 Hgb (11.8-15.2) gm/dl Hct (35.5-45.6) % MCV (84-94) fl MCH (28-32) pg RDW (13.2-15.2) % Plt Count (140-440) K/mm3 [place] % (Auto) (0.0-7.3) % Lymph # (Auto) (1.2-5.4) K/mm3 Sodium (137-145) mmol/L BUN (9-20) mg/dL Glucose (75-100) mg/dL POC Glucose 141 H 223 H 193 H (70-105) mg/dL Calcium (8.4-10.2) mg/dL 02/09/21 02/10/21 02/10/21 Range/Units 21:33 04:13 04:13 WBC 3.7 L (4.5-11.0) K/mm3 Hgb 9.6 L (11.8-15.2) gm/dl Hct 29.5 L (35.5-45.6) % MCV 76 L (84-94) fl MCH 25 L (28-32) pg RDW 17.2 H (13.2-15.2) % Plt Count 79 L (140-440) K/mm3 [place] % (Auto) 15.2 H (0.0-7.3) % Lymph # (Auto) 0.8 L (1.2-5.4) K/mm3 Sodium 131 L (137-145) mmol/L BUN 8 L (9-20) mg/dL Glucose 182 H (75-100) mg/dL POC Glucose 232 H (70-105) mg/dL Calcium 7.9 L (8.4-10.2) mg/dL
[2021-02-10] MEDS ORDERED: VANCOMYCIN PHARMACY TO DOSE IV SCH (11:00)
[2021-02-10] MEDS ORDERED: VANCOMYCIN 2,000 MG in SODIUM CHLORIDE 0.9% 500 ML 500 ML IV ONE (12:00)
[2021-02-10] MEDS: SODIUM CHLORIDE 0.9% 1000 ML 1,000 ML IV SCH (21:12)
[2021-02-10] MEDS: cefTRIAXone/NS 2 GM/100 ML 2 GM/100 ML BAG IV SCH (21:18)
[2021-02-11] MEDS ORDERED: VANCOMYCIN 1,750 MG in SODIUM CHLORIDE 0.9% 500 ML 500 ML IV SCH (01:00)
[2021-02-11 06:24] LABS: Basophils % (Auto) 0.3 % (0.0-1.8); Eosinophils % (Auto) 0.4 % (0.0-4.3); Hematocrit 30.3 % (35.5-45.6); Hemoglobin 9.7 gm/dl (11.8-15.2); Lymphocytes # (Auto) 0.8 K/mm3 (1.2-5.4); Lymphocytes % (Auto) 19.5 % (13.4-35.0); Mean Corpuscular HGB Conc 32 % (32-34); Mean Corpuscular Volume 77 fl (84-94); Monocytes # (Auto) 0.4 K/mm3 (0.0-0.8); Monocytes % (Auto) 11.2 % (0.0-7.3); Red Blood Count 3.96 M/mm3 (3.65-5.03); Red Cell Distribution Width 16.9 % (13.2-15.2)
[2021-02-11 06:27] LABS: Platelet Count 90 K/mm3 (140-440)
[2021-02-11 06:46] LABS: BUN/Creatinine Ratio 6; Blood Urea Nitrogen 7 mg/dL (9-20); Calcium 8.3 mg/dL (8.4-10.2); Hemolysis Index 12
[2021-02-11] MEDS: INSULIN LISPRO 100 UNIT/ML SUB-Q SCH ×4 (08:17→21:45)
--- NOTE | 2021-02-11 08:59 | Progress Note ---
Assessment and Plan Assessment and plan: Sepsis. Patient meets criteria given the diagnosis of osteomyelitis, fever, leukopenia, tachycardia and altered mentation. Right foot osteomyelitis. Diabetes mellitus type 2. Hypertension. 02/09/2021. MRI reveals evidence of osteomyelitis. Await ID recommendations with regards to IV antibiotics. Continue Accu-Cheks and sliding scale insulin for tight glycemic control to promote wound healing. Continue antihypertensive medications 02/10/2021. Continue IV antibiotics. Wound culture pending. Follow-up vascular studies. Continue Accu-Cheks and sliding scale insulin for tight glycemic control to promote wound healing. 02/11/2021. Continue IV ceftriaxone and vancomycin per ID recommendations. Await wound culture for further evaluation. PICC line ordered. ID recommends Rocephin and vancomycin for 6 weeks ending on 03/22/2021. Await arrangements of IV antibiotics per case management. History Interval history: No new issues overnight. Hospitalist Physical - Constitutional Vitals: Temp Pulse Resp BP Pulse Ox 98.0 F 73 18 160/94 96 02/11/21 07:41 02/11/21 07:41 02/11/21 07:41 02/11/21 07:41 02/11/21 07:41 General appearance: Present: no acute distress, well-nourished, disheveled - EENT Eyes: Present: PERRL, EOM intact ENT: hearing intact, clear oral mucosa, dentition normal - Neck Neck: Present: supple, normal ROM - Respiratory Respiratory effort: normal Respiratory: bilateral: CTA - Cardiovascular Rhythm: regular Heart Sounds: Present: S1 & S2. Absent: gallop, rub - Extremities Extremities: no ischemia, No edema, Full ROM - Abdominal General gastrointestinal: soft, non-tender, non-distended, normal bowel sounds - Integumentary Integumentary: Present: clear, warm, dry - Neurologic Neurologic: CNII-XII intact, moves all extremities HEART Score - HEART Score Troponin: Troponin T 0.017 ng/mL (0.00-0.029) 02/07/21 19:53 Results - Labs CBC & Chem 7: 02/11/21 05:38 02/11/21 05:38 Labs: Laboratory Last Values WBC 3.9 K/mm3 (4.5-11.0) L 02/11/21 05:38 RBC 3.96 M/mm3 (3.65-5.03) 02/11/21 05:38 Hgb 9.7 gm/dl (11.8-15.2) L 02/11/21 05:38 Hct 30.3 % (35.5-45.6) L 02/11/21 05:38 MCV 77 fl (84-94) L 02/11/21 05:38 MCH 25 pg (28-32) L 02/11/21 05:38 MCHC 32 % (32-34) 02/11/21 05:38 RDW 16.9 % (13.2-15.2) H 02/11/21 05:38 Plt Count 90 K/mm3 (140-440) L 02/11/21 05:38 Lymph % (Auto) 19.5 % (13.4-35.0) 02/11/21 05:38 [place] % (Auto) 11.2 % (0.0-7.3) H 02/11/21 05:38 Eos % (Auto) 0.4 % (0.0-4.3) 02/11/21 05:38 Baso % (Auto) 0.3 % (0.0-1.8) 02/11/21 05:38 Lymph # (Auto) 0.8 K/mm3 (1.2-5.4) L 02/11/21 05:38 [place] # (Auto) 0.4 K/mm3 (0.0-0.8) 02/11/21 05:38 Eos # (Auto) 0.0 K/mm3 (0.0-0.4) 02/11/21 05:38 Baso # (Auto) 0.0 K/mm3 (0.0-0.1) 02/11/21 05:38 Seg Neutrophils % 68.6 % (40.0-70.0) 02/11/21 05:38 Seg Neutrophils # 2.7 K/mm3 (1.8-7.7) 02/11/21 05:38 ESR 67 mm/Hr (0-20) 02/08/21 14:18 PT 16.2 Sec. (12.2-14.9) H 02/08/21 04:47 INR 1.30 (0.87-1.13) H 02/08/21 04:47 APTT 35.1 Sec. (24.2-36.6) 02/07/21 19:53 VBG pH 7.464 (7.320-7.420) H 02/07/21 19:53 Sodium 135 mmol/L (137-145) L 02/11/21 05:38 Potassium 4.2 mmol/L (3.6-5.0) 02/11/21 05:38 Chloride 102.7 mmol/L (98-107) 02/11/21 05:38 Carbon Dioxide 24 mmol/L (22-30) 02/11/21 05:38 Anion Gap 13 mmol/L 02/11/21 05:38 BUN 7 mg/dL (9-20) L 02/11/21 05:38 Creatinine 1.1 mg/dL (0.8-1.3) 02/11/21 05:38 Estimated GFR > 60 ml/min 02/11/21 05:38 BUN/Creatinine Ratio 6 % 02/11/21 05:38 Glucose 190 mg/dL (75-100) H 02/11/21 05:38 POC Glucose 321 mg/dL (70-105) H 02/10/21 21:36 Hemoglobin A1c 10.6 % (4-6) H 02/07/21 19:53 Lactic Acid 1.90 mmol/L (0.7-2.0) 02/07/21 20:34 Calcium 8.3 mg/dL (8.4-10.2) L 02/11/21 05:38 Total Bilirubin 0.60 mg/dL (0.1-1.2) 02/07/21 19:53 AST 12 units/L (5-40) 02/07/21 19:53 ALT 9 units/L (7-56) 02/07/21 19:53 Alkaline Phosphatase 133 units/L (35-129) H 02/07/21 19:53 Ammonia 23.0 umol/L (25-60) L 02/07/21 19:53 Troponin T 0.017 ng/mL (0.00-0.029) 02/07/21 19:53 C-Reactive Protein 10.10 mg/dL (0.00-1.30) H 02/08/21 14:18 Total Protein 6.9 g/dL (6.3-8.2) 02/07/21 19:53 Albumin 3.1 g/dL (3.9-5) L 02/07/21 19:53 Albumin/Globulin Ratio 0.8 % 02/07/21 19:53 Urine Color Yellow (Yellow) 02/07/21 08:56 Urine Turbidity Clear (Clear) 02/07/21 08:56 Urine pH 6.0 (5.0-7.0) 02/07/21 08:56 Ur Specific [place] 1.005 (1.003-1.030) 02/07/21 08:56 Urine Protein 30 mg/dl mg/dL (Negative) 02/07/21 08:56 Urine Glucose (UA) >=500 mg/dL (Negative) 02/07/21 08:56 Urine Ketones Neg mg/dL (Negative) 02/07/21 08:56 Urine Blood Sm (Negative) 02/07/21 08:56 Urine Nitrite Neg (Negative) 02/07/21 08:56 Urine Bilirubin Neg (Negative) 02/07/21 08:56 Urine Urobilinogen < 2.0 mg/dL (<2.0) 02/07/21 08:56 Ur Leukocyte Esterase Neg (Negative) 02/07/21 08:56 Urine WBC (Auto) < 1.0 /HPF (0.0-6.0) 02/07/21 08:56 Urine RBC (Auto) 1.0 /HPF (0.0-6.0) 02/07/21 08:56 Hyaline Casts 1 /LPF 02/07/21 08:56 Urine Mucus Few /HPF 02/07/21 08:56 Salicylates < 0.3 mg/dL (2.8-20.0) L 02/07/21 19:53 Acetaminophen 5.0 ug/mL (10.0-30.0) L 02/07/21 19:53 Microbiology: Microbiology 02/07/21 19:53 Peripheral/Venous Blood Culture - Preliminary NO GROWTH AFTER 72 HOURS 02/07/21 19:53 Peripheral/Venous Blood Culture - Preliminary NO GROWTH AFTER 72 HOURS Devine/IV: Voiding Method Urinal Active Medications - Current Medications Current Medications: Generic Name Dose Route Start Last Admin Trade Name Freq PRN Reason Stop Dose Admin Acetaminophen 650 mg 02/07/21 22:49 02/09/21 00:01 Acetaminophen 325 Mg Tab PO 650 mg Q4H PRN Administration Pain MILD(1-3)/Fever >100.5/JETT Dextrose 50 ml 02/07/21 22:49 Dextrose 50% In Water (25gm) 50 Ml Syringe IV Q30MIN PRN Hypoglycemia Protocol Sodium Chloride 1,000 mls @ 125 mls/hr 02/07/21 23:00 02/10/21 21:12 Nacl 0.9% 1000 Ml IV 125 mls/hr DIRECT KRISSY Administration Ceftriaxone Sodium 2 gm in 100 mls @ 200 mls/hr 02/08/21 15:00 02/10/21 21:18 Rocephin/Ns 2 Gm/100 Ml IV 03/22/21 15:29 200 mls/hr Q24H KRISSY Administration Protocol Vancomycin HCl 2,000 mg/ 540 mls @ 250 mls/hr 02/11/21 15:00 Sodium Chloride IV Q24H KRISSY Insulin Human Lispro 0 unit 02/08/21 07:30 02/11/21 08:17 Insulin Lispro 100 Unit/Ml SUB-Q 6 unit ACHS KRISSY Administration Protocol Magnesium Hydroxide 30 ml 02/07/21 22:49 Magnesium Hydroxide (Mom) Oral Liqd Udc PO Q4H PRN Constipation Morphine Sulfate 2 mg 02/07/21 22:49 Morphine 2 Mg/1 Ml Inj IV Q4H PRN Pain, Moderate (4-6) Ondansetron HCl 4 mg 02/07/21 22:49 Ondansetron 4 Mg/2 Ml Inj IV Q8H PRN Nausea And Vomiting Sodium Chloride 10 ml 02/08/21 10:00 02/11/21 08:22 Sodium Chloride 0.9% 10 Ml Flush Syringe IV Not Given BID KRISSY Sodium Chloride 10 ml 02/07/21 22:49 Sodium Chloride 0.9% 10 Ml Flush Syringe IV PRN PRN LINE FLUSH Nutrition/Malnutrition Assess - Dietary Evaluation Nutrition/Malnutrition Findings: Nutrition Notes Start: 02/08/21 13:42 Freq: Status: Active Protocol: Document 02/08/21 13:42 DEBRA (Rec: 02/08/21 13:45 DEBRA [id number]) Nutrition Notes Need for Assessment generated from: MD Order,edge kitter Initial or Follow up Brief Note Current Diagnosis Acute Kidney Injury,Diabetes, Hypertension Other Pertinent Diagnosis Hep C, SIRS, hx of R foot amputation Current Diet Cardiac/Consistent CHO Subjective/Other Information RN screen for chewing difficulty, skin risk and MD order for diet education. Cuate score 19. Pt with foot wound. Pt reports no issues chewing and can gum most foods . He states he lives in the [facility] and his meals are provided through a group home where he does not get options of what he eats. Not appropriate for diet education . Pt is eating 100% of meals and would like double fruit/ vegetable portions. Nutrition Intervention Revisit per MD consult or patient Sign Off request:
[2021-02-11] MEDS: cefTRIAXone/NS 2 GM/100 ML 2 GM/100 ML BAG IV SCH (15:32)
[2021-02-11] MEDS: VANCOMYCIN 2,000 MG in SODIUM CHLORIDE 0.9% 500 ML 500 ML IV SCH (15:32)
--- NOTE | 2021-02-11 17:51 | Progress Note ---
Assessment and Plan # ANGEL: likely with CKD 2/2 DM, HTN, baseline creatinine appears around 1.4. Creatinine improved 2.0->1.6->1.3->1.1 this AM with IVF, likely with pre-renal injury +/- tubular injury with infection - continue IVF as able, encourage po hydration/solute intake otherwise - avoid nephrotoxins - defer ultrasound, serologies, urine studies given recent workup at [facility] (reviewed EPIC charting) - would benefit from SAMANTHA/ARB as outpatient, hold now given ANGEL, normotension - renally dose meds - needs CKD follow up/education on discharge, previously saw Dr. Baptiste at [facility], has not seen outpatient # Sepsis, Chronic osteomyelitis/cellulitis: ID recs noted, appreciate input # Diabetes mellitus type 2: management per primary. No proteinuria noted on prior workup # HTN: BP stable, currently off meds # Hyponatremia: mild, improved 128->133->134->135 with NS, likely ANGEL/pre-renal related # Anemia: likely due to acute illness Thank you for this consult, nephrology will follow peripherally given improvement in renal indices Subjective Date of service: 02/11/21 Interval history: No acute issues noted, resting Objective - Exam Narrative Exam: Constitutional: Alert, cooperative. No acute distress Head: Normocephalic, atraumatic Eyes: No icterus. Neck: Supple Cardiovascular: S1, S2 normal. Respiratory: clear to auscultation bilaterally GI: Soft, non-tender; bowel sounds normal Musculoskeletal: No pedal edema Skin: intact Neurological: Awake, alert, oriented. No focal deficits - Vital Signs Vital signs: Vital Signs - 12hr 02/11/21 02/11/21 02/11/21 07:41 11:16 15:39 Temperature 98.0 F 98.7 F 97.8 F Pulse Rate 73 77 76 Respiratory 18 18 18 Rate Blood Pressure 160/94 149/70 176/91 O2 Sat by Pulse 96 100 96 Oximetry - Lab 02/11/21 05:38 02/11/21 05:38 Most recent lab results Calcium 8.3 mg/dL (8.4-10.2) L 02/11/21 05:38 Medications & Allergies - Medications Allergies/Adverse Reactions: Allergies No Known Allergies Allergy (Verified 02/07/21 22:57) Home Medications: Home Medications Medication Instructions Recorded Confirmed Last Taken Type No Known Home Medications [No 02/10/21 02/10/21 Unknown History Reported Home Medications] Active Medications: Generic Name Dose Route Start Last Admin Trade Name Alek PRN Reason Stop Dose Admin Acetaminophen 650 mg 02/07/21 22:49 02/09/21 00:01 Acetaminophen 325 Mg Tab PO 650 mg Q4H PRN Administration Pain MILD(1-3)/Fever >100.5/JETT Dextrose 50 ml 02/07/21 22:49 Dextrose 50% In Water (25gm) 50 Ml Syringe IV Q30MIN PRN Hypoglycemia Protocol Sodium Chloride 1,000 mls @ 125 mls/hr 02/07/21 23:00 02/10/21 21:12 Nacl 0.9% 1000 Ml IV 125 mls/hr DIRECT KRISSY Administration Ceftriaxone Sodium 2 gm in 100 mls @ 200 mls/hr 02/08/21 15:00 02/11/21 15:32 Rocephin/Ns 2 Gm/100 Ml IV 03/22/21 15:29 200 mls/hr Q24H KRISSY Administration Protocol Vancomycin HCl 2,000 mg/ 540 mls @ 250 mls/hr 02/11/21 15:00 02/11/21 15:32 Sodium Chloride IV 250 mls/hr Q24H KRISSY Administration Insulin Human Lispro 0 unit 02/08/21 07:30 02/11/21 12:32 Insulin Lispro 100 Unit/Ml SUB-Q 4 unit ACHS KRISSY Administration Protocol Magnesium Hydroxide 30 ml 02/07/21 22:49 Magnesium Hydroxide (Mom) Oral Liqd Udc PO Q4H PRN Constipation Morphine Sulfate 2 mg 02/07/21 22:49 Morphine 2 Mg/1 Ml Inj IV Q4H PRN Pain, Moderate (4-6) Ondansetron HCl 4 mg 02/07/21 22:49 Ondansetron 4 Mg/2 Ml Inj IV Q8H PRN Nausea And Vomiting Sodium Chloride 10 ml 02/08/21 10:00 02/11/21 08:22 Sodium Chloride 0.9% 10 Ml Flush Syringe IV Not Given BID KRISSY Sodium Chloride 10 ml 02/07/21 22:49 Sodium Chloride 0.9% 10 Ml Flush Syringe IV PRN PRN LINE FLUSH
[2021-02-11] MEDS: SODIUM CHLORIDE 0.9% 1000 ML 1,000 ML IV SCH (18:11)
[2021-02-12] MEDS: SODIUM CHLORIDE 0.9% 1000 ML 1,000 ML IV SCH (04:39)
[2021-02-12 05:56] LABS: Basophils % (Auto) 0.3 % (0.0-1.8); Eosinophils % (Auto) 0.2 % (0.0-4.3); Hematocrit 30.4 % (35.5-45.6); Hemoglobin 9.9 gm/dl (11.8-15.2); Lymphocytes # (Auto) 0.9 K/mm3 (1.2-5.4); Lymphocytes % (Auto) 19.8 % (13.4-35.0); Mean Corpuscular HGB Conc 33 % (32-34); Mean Corpuscular Volume 77 fl (84-94); Monocytes # (Auto) 0.5 K/mm3 (0.0-0.8); Monocytes % (Auto) 10.5 % (0.0-7.3); Platelet Count 102 K/mm3 (140-440); Red Blood Count 3.98 M/mm3 (3.65-5.03); Red Cell Distribution Width 17.3 % (13.2-15.2)
[2021-02-12 06:14] LABS: BUN/Creatinine Ratio 7; Blood Urea Nitrogen 7 mg/dL (9-20); Calcium 8.5 mg/dL (8.4-10.2); Hemolysis Index 0
--- NOTE | 2021-02-12 09:24 | Progress Note ---
Assessment and Plan Assessment and plan: Sepsis. Patient meets criteria given the diagnosis of osteomyelitis, fever, leukopenia, tachycardia and altered mentation. Right foot osteomyelitis. Diabetes mellitus type 2. Hypertension. 02/09/2021. MRI reveals evidence of osteomyelitis. Await ID recommendations with regards to IV antibiotics. Continue Accu-Cheks and sliding scale insulin for tight glycemic control to promote wound healing. Continue antihypertensive medications 02/10/2021. Continue IV antibiotics. Wound culture pending. Follow-up vascular studies. Continue Accu-Cheks and sliding scale insulin for tight glycemic control to promote wound healing. 02/11/2021. Continue IV ceftriaxone and vancomycin per ID recommendations. Await wound culture for further evaluation. PICC line ordered. ID recommends Rocephin and vancomycin for 6 weeks ending on 03/22/2021. Await arrangements of IV antibiotics per case management. 02/12/2021. Continue IV antibiotics per ID recommendations. ID recommends Rocephin and vancomycin for 6 weeks ending on 03/22/2021. Await arrangements of IV antibiotics per case management. History Interval history: No new issues overnight. Hospitalist Physical - Constitutional Vitals: Temp Pulse Resp BP Pulse Ox 97.3 F L 71 18 170/94 95 02/12/21 07:40 02/12/21 07:40 02/12/21 07:40 02/12/21 07:40 02/12/21 07:40 General appearance: Present: no acute distress, well-nourished, disheveled - EENT Eyes: Present: PERRL, EOM intact ENT: hearing intact, clear oral mucosa, dentition normal - Neck Neck: Present: supple, normal ROM - Respiratory Respiratory effort: normal Respiratory: bilateral: CTA - Cardiovascular Rhythm: regular Heart Sounds: Present: S1 & S2. Absent: gallop, rub - Extremities Extremities: no ischemia, No edema, Full ROM - Abdominal General gastrointestinal: soft, non-tender, non-distended, normal bowel sounds - Integumentary Integumentary: Present: clear, warm, dry - Neurologic Neurologic: CNII-XII intact, moves all extremities HEART Score - HEART Score Troponin: Troponin T 0.017 ng/mL (0.00-0.029) 02/07/21 19:53 Results - Labs CBC & Chem 7: 02/12/21 04:37 02/12/21 04:37 Labs: Laboratory Last Values WBC 4.5 K/mm3 (4.5-11.0) 02/12/21 04:37 RBC 3.98 M/mm3 (3.65-5.03) 02/12/21 04:37 Hgb 9.9 gm/dl (11.8-15.2) L 02/12/21 04:37 Hct 30.4 % (35.5-45.6) L 02/12/21 04:37 MCV 77 fl (84-94) L 02/12/21 04:37 MCH 25 pg (28-32) L 02/12/21 04:37 MCHC 33 % (32-34) 02/12/21 04:37 RDW 17.3 % (13.2-15.2) H 02/12/21 04:37 Plt Count 102 K/mm3 (140-440) L 02/12/21 04:37 Lymph % (Auto) 19.8 % (13.4-35.0) 02/12/21 04:37 [place] % (Auto) 10.5 % (0.0-7.3) H 02/12/21 04:37 Eos % (Auto) 0.2 % (0.0-4.3) 02/12/21 04:37 Baso % (Auto) 0.3 % (0.0-1.8) 02/12/21 04:37 Lymph # (Auto) 0.9 K/mm3 (1.2-5.4) L 02/12/21 04:37 [place] # (Auto) 0.5 K/mm3 (0.0-0.8) 02/12/21 04:37 Eos # (Auto) 0.0 K/mm3 (0.0-0.4) 02/12/21 04:37 Baso # (Auto) 0.0 K/mm3 (0.0-0.1) 02/12/21 04:37 Seg Neutrophils % 69.2 % (40.0-70.0) 02/12/21 04:37 Seg Neutrophils # 3.1 K/mm3 (1.8-7.7) 02/12/21 04:37 ESR 67 mm/Hr (0-20) 02/08/21 14:18 PT 16.2 Sec. (12.2-14.9) H 02/08/21 04:47 INR 1.30 (0.87-1.13) H 02/08/21 04:47 APTT 35.1 Sec. (24.2-36.6) 02/07/21 19:53 VBG pH 7.464 (7.320-7.420) H 02/07/21 19:53 Sodium 135 mmol/L (137-145) L 02/12/21 04:37 Potassium 4.1 mmol/L (3.6-5.0) 02/12/21 04:37 Chloride 102.7 mmol/L (98-107) 02/12/21 04:37 Carbon Dioxide 23 mmol/L (22-30) 02/12/21 04:37 Anion Gap 13 mmol/L 02/12/21 04:37 BUN 7 mg/dL (9-20) L 02/12/21 04:37 Creatinine 1.0 mg/dL (0.8-1.3) 02/12/21 04:37 Estimated GFR > 60 ml/min 02/12/21 04:37 BUN/Creatinine Ratio 7 % 02/12/21 04:37 Glucose 260 mg/dL (75-100) H 02/12/21 04:37 POC Glucose 197 mg/dL (70-105) H 02/11/21 21:43 Hemoglobin A1c 10.6 % (4-6) H 02/07/21 19:53 Lactic Acid 1.90 mmol/L (0.7-2.0) 02/07/21 20:34 Calcium 8.5 mg/dL (8.4-10.2) 02/12/21 04:37 Total Bilirubin 0.60 mg/dL (0.1-1.2) 02/07/21 19:53 AST 12 units/L (5-40) 02/07/21 19:53 ALT 9 units/L (7-56) 02/07/21 19:53 Alkaline Phosphatase 133 units/L (35-129) H 02/07/21 19:53 Ammonia 23.0 umol/L (25-60) L 02/07/21 19:53 Troponin T 0.017 ng/mL (0.00-0.029) 02/07/21 19:53 C-Reactive Protein 10.10 mg/dL (0.00-1.30) H 02/08/21 14:18 Total Protein 6.9 g/dL (6.3-8.2) 02/07/21 19:53 Albumin 3.1 g/dL (3.9-5) L 02/07/21 19:53 Albumin/Globulin Ratio 0.8 % 02/07/21 19:53 Urine Color Yellow (Yellow) 02/07/21 08:56 Urine Turbidity Clear (Clear) 02/07/21 08:56 Urine pH 6.0 (5.0-7.0) 02/07/21 08:56 Ur Specific [place] 1.005 (1.003-1.030) 02/07/21 08:56 Urine Protein 30 mg/dl mg/dL (Negative) 02/07/21 08:56 Urine Glucose (UA) >=500 mg/dL (Negative) 02/07/21 08:56 Urine Ketones Neg mg/dL (Negative) 02/07/21 08:56 Urine Blood Sm (Negative) 02/07/21 08:56 Urine Nitrite Neg (Negative) 02/07/21 08:56 Urine Bilirubin Neg (Negative) 02/07/21 08:56 Urine Urobilinogen < 2.0 mg/dL (<2.0) 02/07/21 08:56 Ur Leukocyte Esterase Neg (Negative) 02/07/21 08:56 Urine WBC (Auto) < 1.0 /HPF (0.0-6.0) 02/07/21 08:56 Urine RBC (Auto) 1.0 /HPF (0.0-6.0) 02/07/21 08:56 Hyaline Casts 1 /LPF 02/07/21 08:56 Urine Mucus Few /HPF 02/07/21 08:56 Salicylates < 0.3 mg/dL (2.8-20.0) L 02/07/21 19:53 Acetaminophen 5.0 ug/mL (10.0-30.0) L 02/07/21 19:53 Microbiology: Microbiology 02/07/21 19:53 Peripheral/Venous Blood Culture - Preliminary NO GROWTH AFTER 4 DAYS 02/07/21 19:53 Peripheral/Venous Blood Culture - Preliminary NO GROWTH AFTER 4 DAYS [place]/IV: Voiding Method Toilet Active Medications - Current Medications Current Medications: Generic Name Dose Route Start Last Admin Trade Name Freq PRN Reason Stop Dose Admin Acetaminophen 650 mg 02/07/21 22:49 02/09/21 00:01 Acetaminophen 325 Mg Tab PO 650 mg Q4H PRN Administration Pain MILD(1-3)/Fever >100.5/JETT Dextrose 50 ml 02/07/21 22:49 Dextrose 50% In Water (25gm) 50 Ml Syringe IV Q30MIN PRN Hypoglycemia Protocol Sodium Chloride 1,000 mls @ 125 mls/hr 02/07/21 23:00 02/12/21 04:39 Nacl 0.9% 1000 Ml IV 125 mls/hr DIRECT KRISSY Administration Ceftriaxone Sodium 2 gm in 100 mls @ 200 mls/hr 02/08/21 15:00 02/11/21 15:32 Rocephin/Ns 2 Gm/100 Ml IV 03/22/21 15:29 200 mls/hr Q24H KRISSY Administration Protocol Vancomycin HCl 2,000 mg/ 540 mls @ 250 mls/hr 02/11/21 15:00 02/11/21 15:32 Sodium Chloride IV 250 mls/hr Q24H KRISSY Administration Insulin Human Lispro 0 unit 02/08/21 07:30 02/11/21 21:45 Insulin Lispro 100 Unit/Ml SUB-Q 2 unit ACHS KRISSY Administration Protocol Magnesium Hydroxide 30 ml 02/07/21 22:49 Magnesium Hydroxide (Mom) Oral Liqd Udc PO Q4H PRN Constipation Morphine Sulfate 2 mg 02/07/21 22:49 Morphine 2 Mg/1 Ml Inj IV Q4H PRN Pain, Moderate (4-6) Ondansetron HCl 4 mg 02/07/21 22:49 Ondansetron 4 Mg/2 Ml Inj IV Q8H PRN Nausea And Vomiting Sodium Chloride 10 ml 02/08/21 10:00 02/11/21 21:43 Sodium Chloride 0.9% 10 Ml Flush Syringe IV 10 ml BID KRISSY Administration Sodium Chloride 10 ml 02/07/21 22:49 Sodium Chloride 0.9% 10 Ml Flush Syringe IV PRN PRN LINE FLUSH Nutrition/Malnutrition Assess - Dietary Evaluation Nutrition/Malnutrition Findings: Nutrition Notes Start: 02/08/21 13:42 Freq: Status: Active Protocol: Document 02/08/21 13:42 DEBRA (Rec: 02/08/21 13:45 MK [id number]) Nutrition Notes 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 Cuate score 19. Pt with foot wound. Pt reports no issues chewing and can gum most foods . He states he lives in the [place] and his meals are provided through a fdc where he does not get options of what he eats. Not appropriate for diet education . Pt is eating 100% of meals and would like double fruit/ vegetable portions. Nutrition Intervention Revisit per MD consult or patient Sign Off request:
[2021-02-12] MEDS: INSULIN LISPRO 100 UNIT/ML SUB-Q SCH ×3 (09:55→22:02)
[2021-02-12] MEDS: cefTRIAXone/NS 2 GM/100 ML 2 GM/100 ML BAG IV SCH (15:15)
[2021-02-12] MEDS: VANCOMYCIN 2,000 MG in SODIUM CHLORIDE 0.9% 500 ML 500 ML IV SCH (19:15)
[2021-02-13 05:53] LABS: Hematocrit 31.9 % (35.5-45.6); Hemoglobin 10.3 gm/dl (11.8-15.2); Mean Corpuscular HGB Conc 32 % (32-34); Mean Corpuscular Volume 76 fl (84-94); Platelet Count 105 K/mm3 (140-440); Red Blood Count 4.18 M/mm3 (3.65-5.03); Red Cell Distribution Width 17.6 % (13.2-15.2)
[2021-02-13 05:57] LABS: Basophils % (Auto) 0.4 % (0.0-1.8); Eosinophils % (Auto) 0.2 % (0.0-4.3); Lymphocytes # (Auto) 1.1 K/mm3 (1.2-5.4); Lymphocytes % (Auto) 21.2 % (13.4-35.0); Monocytes # (Auto) 0.4 K/mm3 (0.0-0.8); Monocytes % (Auto) 8.5 % (0.0-7.3)
[2021-02-13 06:06] LABS: BUN/Creatinine Ratio 8; Blood Urea Nitrogen 8 mg/dL (9-20); Calcium 8.5 mg/dL (8.4-10.2); Hemolysis Index 19
[2021-02-13] MEDS: INSULIN LISPRO 100 UNIT/ML SUB-Q SCH ×3 (07:53→16:23)
[2021-02-13] MEDS: SODIUM CHLORIDE 0.9% 1000 ML 1,000 ML IV SCH ×2 (07:53→14:50)
--- NOTE | 2021-02-13 08:40 | Progress Note ---
Subjective Interval history: Patient was seen today for follow-up of multiple renal related issues No complaints of any chest pain pressure or shortness of breath Interdisciplinary notes that also reviewed Events of 24 hours vitals labs intake output medications were reviewed Past medical history: Reviewed Family history: Reviewed Social history: Reviewed Allergies: Reviewed Physical examination: Vitals: Reviewed HEENT: No pallor or icterus oral mucosa moist Neck: Supple no JVD no thyromegaly Chest: Bilateral clear to auscultation anteriorly Heart: Regular rate and rhythm S1-S2 heard no S3-S4 Abdomen: Soft nontender no voluntary guarding rigidity rebound Extremity: Dry skin less than 1+ peripheral edema Psychiatric: No evidence of agitation and aggression noted Dermatology: No petechial rashes Labs and x-rays: Reviewed from today Assessment and plan Acute kidney injury most likely due to acute tubular injury and prerenal state likely patient did had some degree of acute tubal necrosis, Has multiple risk factors for underlying chronic kidney disease creatinine much improved with hydration however patient must be followed up in the office upon discharge Remotely has seen a coppersmith helper but never followed through Patient made aware to monitor the renal function controlled diabetes hypertension work on diet and lifestyle He has a today potassium is 4.3 creatinine 1.0 Urinalysis showed mild proteinuria but no hematuria Patient was adequately counseled and educated regarding all the renal related issues Laboratory studies, have been explained to the patient All questions were answered and simple [place] We'll continue to follow and make recommendation for renal standpoint Objective - Vital Signs Vital signs: Vital Signs - 12hr 02/12/21 02/13/21 02/13/21 23:43 02:04 03:44 Temperature 97.3 F L 97.8 F Pulse Rate 74 72 75 Respiratory 19 18 Rate Blood Pressure 157/81 156/86 O2 Sat by Pulse 95 93 Oximetry 02/13/21 07:14 Temperature 97.8 F Pulse Rate 75 Respiratory 20 Rate Blood Pressure 181/101 O2 Sat by Pulse 93 Oximetry - Lab 02/13/21 04:22 02/13/21 04:22 Most recent lab results Calcium 8.5 mg/dL (8.4-10.2) 02/13/21 04:22 Medications & Allergies - Medications Allergies/Adverse Reactions: Allergies No Known Allergies Allergy (Verified 02/07/21 22:57) Home Medications: Home Medications Medication Instructions Recorded Confirmed Last Taken Type No Known Home Medications [No 02/10/21 02/10/21 Unknown History Reported Home Medications] Active Medications: Generic Name Dose Route Start Last Admin Trade Name Freq PRN Reason Stop Dose Admin Acetaminophen 650 mg 02/07/21 22:49 02/09/21 00:01 Acetaminophen 325 Mg Tab PO 650 mg Q4H PRN Administration Pain MILD(1-3)/Fever >100.5/JETT Dextrose 50 ml 02/07/21 22:49 Dextrose 50% In Water (25gm) 50 Ml Syringe IV Q30MIN PRN Hypoglycemia Protocol Sodium Chloride 1,000 mls @ 125 mls/hr 02/07/21 23:00 02/13/21 07:53 Nacl 0.9% 1000 Ml IV 125 mls/hr DIRECT KRISSY Administration Ceftriaxone Sodium 2 gm in 100 mls @ 200 mls/hr 02/08/21 15:00 02/12/21 15:15 Rocephin/Ns 2 Gm/100 Ml IV 03/22/21 15:29 200 mls/hr Q24H KRISSY Administration Protocol Vancomycin HCl 2,000 mg/ 540 mls @ 250 mls/hr 02/11/21 15:00 02/12/21 19:15 Sodium Chloride IV 250 mls/hr Q24H KRISSY Administration Insulin Human Lispro 0 unit 02/08/21 07:30 02/13/21 07:53 Insulin Lispro 100 Unit/Ml SUB-Q 2 unit ACHS KRISSY Administration Protocol Labetalol HCl 200 mg 02/13/21 10:00 Labetalol 200 Mg Tab PO BID KRISSY Magnesium Hydroxide 30 ml 02/07/21 22:49 Magnesium Hydroxide (Mom) Oral Liqd Udc PO Q4H PRN Constipation Morphine Sulfate 2 mg 02/07/21 22:49 Morphine 2 Mg/1 Ml Inj IV Q4H PRN Pain, Moderate (4-6) Ondansetron HCl 4 mg 02/07/21 22:49 Ondansetron 4 Mg/2 Ml Inj IV Q8H PRN Nausea And Vomiting Sodium Chloride 10 ml 02/08/21 10:00 02/12/21 22:02 Sodium Chloride 0.9% 10 Ml Flush Syringe IV 10 ml BID KRISSY Administration Sodium Chloride 10 ml 02/07/21 22:49 Sodium Chloride 0.9% 10 Ml Flush Syringe IV PRN PRN LINE FLUSH
--- NOTE | 2021-02-13 09:16 | Progress Note ---
Assessment and Plan Assessment and plan: Sepsis. Patient meets criteria given the diagnosis of osteomyelitis, fever, leukopenia, tachycardia and altered mentation. Right foot osteomyelitis. Diabetes mellitus type 2. Hypertension. 02/09/2021. MRI reveals evidence of osteomyelitis. Await ID recommendations with regards to IV antibiotics. Continue Accu-Cheks and sliding scale insulin for tight glycemic control to promote wound healing. Continue antihypertensive medications 02/10/2021. Continue IV antibiotics. Wound culture pending. Follow-up vascular studies. Continue Accu-Cheks and sliding scale insulin for tight glycemic control to promote wound healing. 02/11/2021. Continue IV ceftriaxone and vancomycin per ID recommendations. Await wound culture for further evaluation. PICC line ordered. ID recommends Rocephin and vancomycin for 6 weeks ending on 03/22/2021. Await arrangements of IV antibiotics per case management. 02/12/2021. Continue IV antibiotics per ID recommendations. ID recommends Rocephin and vancomycin for 6 weeks ending on 03/22/2021. Await arrangements of IV antibiotics per case management. 02/13/2021. Continue IV antibiotics of Rocephin and vancomycin recommended for 6 weeks per ID. Await arrangements of IV antibiotics per case management. Acute kidney injury has resolved and patient's creatinine back to normal. Nephrology following. Tight glycemic control to promote wound healing. History Interval history: No new issues overnight. Hospitalist Physical - Constitutional Vitals: Temp Pulse Resp BP Pulse Ox 97.8 F 75 20 181/101 93 02/13/21 07:14 02/13/21 07:14 02/13/21 07:14 02/13/21 07:14 02/13/21 07:14 General appearance: Present: no acute distress, well-nourished, disheveled - EENT Eyes: Present: PERRL, EOM intact ENT: hearing intact, clear oral mucosa, dentition normal - Neck Neck: Present: supple, normal ROM - Respiratory Respiratory effort: normal Respiratory: bilateral: CTA - Cardiovascular Rhythm: regular Heart Sounds: Present: S1 & S2. Absent: gallop, rub - Extremities Extremities: no ischemia, No edema, Full ROM - Abdominal General gastrointestinal: soft, non-tender, non-distended, normal bowel sounds - Integumentary Integumentary: Present: clear, warm, dry - Neurologic Neurologic: CNII-XII intact, moves all extremities HEART Score - HEART Score Troponin: Troponin T 0.017 ng/mL (0.00-0.029) 02/07/21 19:53 Results - Labs CBC & Chem 7: 02/13/21 04:22 02/13/21 04:22 Labs: Laboratory Last Values WBC 5.1 K/mm3 (4.5-11.0) 02/13/21 04:22 RBC 4.18 M/mm3 (3.65-5.03) 02/13/21 04:22 Hgb 10.3 gm/dl (11.8-15.2) L 02/13/21 04:22 Hct 31.9 % (35.5-45.6) L 02/13/21 04:22 MCV 76 fl (84-94) L 02/13/21 04:22 MCH 25 pg (28-32) L 02/13/21 04:22 MCHC 32 % (32-34) 02/13/21 04:22 RDW 17.6 % (13.2-15.2) H 02/13/21 04:22 Plt Count 105 K/mm3 (140-440) L 02/13/21 04:22 Lymph % (Auto) 21.2 % (13.4-35.0) 02/13/21 04:22 [place] % (Auto) 8.5 % (0.0-7.3) H 02/13/21 04:22 Eos % (Auto) 0.2 % (0.0-4.3) 02/13/21 04:22 Baso % (Auto) 0.4 % (0.0-1.8) 02/13/21 04:22 Lymph # (Auto) 1.1 K/mm3 (1.2-5.4) L 02/13/21 04:22 [place] # (Auto) 0.4 K/mm3 (0.0-0.8) 02/13/21 04:22 Eos # (Auto) 0.0 K/mm3 (0.0-0.4) 02/13/21 04:22 Baso # (Auto) 0.0 K/mm3 (0.0-0.1) 02/13/21 04:22 Seg Neutrophils % 69.7 % (40.0-70.0) 02/13/21 04:22 Seg Neutrophils # 3.5 K/mm3 (1.8-7.7) 02/13/21 04:22 ESR 67 mm/Hr (0-20) 02/08/21 14:18 PT 16.2 Sec. (12.2-14.9) H 02/08/21 04:47 INR 1.30 (0.87-1.13) H 02/08/21 04:47 APTT 35.1 Sec. (24.2-36.6) 02/07/21 19:53 VBG pH 7.464 (7.320-7.420) H 02/07/21 19:53 Sodium 138 mmol/L (137-145) 02/13/21 04:22 Potassium 4.3 mmol/L (3.6-5.0) 02/13/21 04:22 Chloride 104.6 mmol/L (98-107) 02/13/21 04:22 Carbon Dioxide 23 mmol/L (22-30) 02/13/21 04:22 Anion Gap 15 mmol/L 02/13/21 04:22 BUN 8 mg/dL (9-20) L 02/13/21 04:22 Creatinine 1.0 mg/dL (0.8-1.3) 02/13/21 04:22 Estimated GFR > 60 ml/min 02/13/21 04:22 BUN/Creatinine Ratio 8 % 02/13/21 04:22 Glucose 204 mg/dL (75-100) H 02/13/21 04:22 POC Glucose 213 mg/dL (70-105) H 02/12/21 21:33 Hemoglobin A1c 10.6 % (4-6) H 02/07/21 19:53 Lactic Acid 1.90 mmol/L (0.7-2.0) 02/07/21 20:34 Calcium 8.5 mg/dL (8.4-10.2) 02/13/21 04:22 Total Bilirubin 0.60 mg/dL (0.1-1.2) 02/07/21 19:53 AST 12 units/L (5-40) 02/07/21 19:53 ALT 9 units/L (7-56) 02/07/21 19:53 Alkaline Phosphatase 133 units/L (35-129) H 02/07/21 19:53 Ammonia 23.0 umol/L (25-60) L 02/07/21 19:53 Troponin T 0.017 ng/mL (0.00-0.029) 02/07/21 19:53 C-Reactive Protein 10.10 mg/dL (0.00-1.30) H 02/08/21 14:18 Total Protein 6.9 g/dL (6.3-8.2) 02/07/21 19:53 Albumin 3.1 g/dL (3.9-5) L 02/07/21 19:53 Albumin/Globulin Ratio 0.8 % 02/07/21 19:53 Urine Color Yellow (Yellow) 02/07/21 08:56 Urine Turbidity Clear (Clear) 02/07/21 08:56 Urine pH 6.0 (5.0-7.0) 02/07/21 08:56 Ur Specific [place] 1.005 (1.003-1.030) 02/07/21 08:56 Urine Protein 30 mg/dl mg/dL (Negative) 02/07/21 08:56 Urine Glucose (UA) >=500 mg/dL (Negative) 02/07/21 08:56 Urine Ketones Neg mg/dL (Negative) 02/07/21 08:56 Urine Blood Sm (Negative) 02/07/21 08:56 Urine Nitrite Neg (Negative) 02/07/21 08:56 Urine Bilirubin Neg (Negative) 02/07/21 08:56 Urine Urobilinogen < 2.0 mg/dL (<2.0) 02/07/21 08:56 Ur Leukocyte Esterase Neg (Negative) 02/07/21 08:56 Urine WBC (Auto) < 1.0 /HPF (0.0-6.0) 02/07/21 08:56 Urine RBC (Auto) 1.0 /HPF (0.0-6.0) 02/07/21 08:56 Hyaline Casts 1 /LPF 02/07/21 08:56 Urine Mucus Few /HPF 02/07/21 08:56 Salicylates < 0.3 mg/dL (2.8-20.0) L 02/07/21 19:53 Acetaminophen 5.0 ug/mL (10.0-30.0) L 02/07/21 19:53 Microbiology: Microbiology 02/07/21 19:53 Peripheral/Venous Blood Culture - Final NO GROWTH AFTER 5 DAYS 02/07/21 19:53 Peripheral/Venous Blood Culture - Final NO GROWTH AFTER 5 DAYS Devine/IV: Voiding Method Urinal Active Medications - Current Medications Current Medications: Generic Name Dose Route Start Last Admin Trade Name Freq PRN Reason Stop Dose Admin Acetaminophen 650 mg 02/07/21 22:49 02/09/21 00:01 Acetaminophen 325 Mg Tab PO 650 mg Q4H PRN Administration Pain MILD(1-3)/Fever >100.5/JETT Dextrose 50 ml 02/07/21 22:49 Dextrose 50% In Water (25gm) 50 Ml Syringe IV Q30MIN PRN Hypoglycemia Protocol Sodium Chloride 1,000 mls @ 125 mls/hr 02/07/21 23:00 02/13/21 07:53 Nacl 0.9% 1000 Ml IV 125 mls/hr DIRECT KRISSY Administration Ceftriaxone Sodium 2 gm in 100 mls @ 200 mls/hr 02/08/21 15:00 02/12/21 15:15 Rocephin/Ns 2 Gm/100 Ml IV 03/22/21 15:29 200 mls/hr Q24H KRISSY Administration Protocol Vancomycin HCl 2,000 mg/ 540 mls @ 250 mls/hr 02/11/21 15:00 02/12/21 19:15 Sodium Chloride IV 250 mls/hr Q24H KRISSY Administration Insulin Human Lispro 0 unit 02/08/21 07:30 02/13/21 07:53 Insulin Lispro 100 Unit/Ml SUB-Q 2 unit ACHS KRISSY Administration Protocol Labetalol HCl 200 mg 02/13/21 10:00 Labetalol 200 Mg Tab PO BID KRISSY Magnesium Hydroxide 30 ml 02/07/21 22:49 Magnesium Hydroxide (Mom) Oral Liqd Udc PO Q4H PRN Constipation Morphine Sulfate 2 mg 02/07/21 22:49 Morphine 2 Mg/1 Ml Inj IV Q4H PRN Pain, Moderate (4-6) Ondansetron HCl 4 mg 02/07/21 22:49 Ondansetron 4 Mg/2 Ml Inj IV Q8H PRN Nausea And Vomiting Sodium Chloride 10 ml 02/08/21 10:00 02/12/21 22:02 Sodium Chloride 0.9% 10 Ml Flush Syringe IV 10 ml BID KRISSY Administration Sodium Chloride 10 ml 02/07/21 22:49 Sodium Chloride 0.9% 10 Ml Flush Syringe IV PRN PRN LINE FLUSH Nutrition/Malnutrition Assess - Dietary Evaluation Nutrition/Malnutrition Findings: Nutrition Notes Start: 02/08/21 13:42 Freq: Status: Active Protocol: Document 02/08/21 13:42 (Rec: 02/08/21 13:45 [id number]) Nutrition Notes 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 Cuate score 19. Pt with foot wound. Pt reports no issues chewing and can gum most foods . He states he lives in the [facility] and his meals are provided through a half-way where he does not get options of what he eats. Not appropriate for diet education . Pt is eating 100% of meals and would like double fruit/ vegetable portions. Nutrition Intervention Revisit per MD consult or patient Sign Off request:
--- NOTE | 2021-02-13 14:32 | Progress Note ---
Assessment and Plan Cultures: 02/07/2021 blood culture: no growth A/P: 60-year-old male with diabetes mellitus type 2, gout, history of osteomyelitis of his right foot requiring a transmetatarsal amputation in the past, chronic alcohol abuse, chronic thrombocytopenia which has been evaluated by hematology and attributed to alcohol abuse came into the emergency room with complaints of multiple falls. 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 Patient used to follow-up with the [facility] but states he does not have a ride anymore. MRI with possible early osteomyelitis. CRP 10.1, ESR 67. Vascular study without significant arterial insufficiency. #ANGEL on CKD: Secondary to longstanding hypertension and poorly controlled diabetes. Improved. #Chronic alcohol abuse with associated thrombocytopenia and underlying cirrhosis #Diabetes mellitus type 2, uncontrolled #Thrombocytopenia: Likely due underlying cirrhosis Recs: -Continue IV ceftriaxone, vancomycin -vancomycin target trough: 10-20 mcg/ml -Wound culture ordered - not done -Case management orders placed: IV ceftriaxone plus vancomycin for 6 weeks ending 03/22/2021 will follow MD [facility] ([facility]) Office [phone] Subjective Date of service: 02/13/21 Principal diagnosis: Right foot infection Interval history: Patient feels better, no complaints, sporadic cough Objective - Exam Narrative Exam: General appearance: Alert in NAD pleasant Eyes: anicteric sclerae, moist conjunctivae; no lid-lag; PERRLA HENT: Normocephalic, Atraumatic; normal external ears, nares open, oropharynx limited Neck: supple, tracheal midline, no JVD Lungs: CTA, with normal respiratory effort and no intercostal retractions CV: RRR Abdomen: Soft, non-tender Extremities: no edema, no cyanosis Skin: No rash. Psych: no agitated Neuro: alert and oriented x 3. Moving all extermities - Constitutional Vitals: Vital Signs Temp Pulse Resp BP Pulse Ox 97.8 F 73 20 181/101 93 02/13/21 07:14 02/13/21 10:13 02/13/21 07:14 02/13/21 10:13 04/05/21 07:14 Temperature -Last 24 Hours Temperature 97.8 F Temperature 97.8 F Temperature 97.3 F Temperature 98.1 F Temperature 97.4 F - Labs CBC & Chem 7: 02/13/21 04:22 02/13/21 04:22 Labs: Abnormal lab results 02/12/21 02/12/21 02/12/21 Range/Units 07:44 11:18 15:57 Hgb (11.8-15.2) gm/dl Hct (35.5-45.6) % MCV (84-94) fl MCH (28-32) pg RDW (13.2-15.2) % Plt Count (140-440) K/mm3 [place] % (Auto) (0.0-7.3) % Lymph # (Auto) (1.2-5.4) K/mm3 BUN (9-20) mg/dL Glucose (75-100) mg/dL POC Glucose 254 H 296 H 277 H (70-105) mg/dL 02/12/21 02/13/21 02/13/21 Range/Units 21:33 04:22 04:22 Hgb 10.3 L (11.8-15.2) gm/dl Hct 31.9 L (35.5-45.6) % MCV 76 L (84-94) fl MCH 25 L (28-32) pg RDW 17.6 H (13.2-15.2) % Plt Count 105 L (140-440) K/mm3 [place] % (Auto) 8.5 H (0.0-7.3) % Lymph # (Auto) 1.1 L (1.2-5.4) K/mm3 BUN 8 L (9-20) mg/dL Glucose 204 H (75-100) mg/dL POC Glucose 213 H (70-105) mg/dL 02/13/21 02/13/21 Range/Units 07:17 11:17 Hgb (11.8-15.2) gm/dl Hct (35.5-45.6) % MCV (84-94) fl MCH (28-32) pg RDW (13.2-15.2) % Plt Count (140-440) K/mm3 [place] % (Auto) (0.0-7.3) % Lymph # (Auto) (1.2-5.4) K/mm3 BUN (9-20) mg/dL Glucose (75-100) mg/dL POC Glucose 199 H 359 H (70-105) mg/dL
[2021-02-13] MEDS: cefTRIAXone/NS 2 GM/100 ML 2 GM/100 ML BAG IV SCH (14:50)
[2021-02-13] MEDS: VANCOMYCIN 2,000 MG in SODIUM CHLORIDE 0.9% 500 ML 500 ML IV SCH (16:04)
[2021-02-14] MEDS: INSULIN LISPRO 100 UNIT/ML SUB-Q SCH ×3 (04:24→12:52)
--- NOTE | 2021-02-14 07:41 | Progress Note ---
Subjective Principal diagnosis: Right foot infection Objective - Vital Signs Vital signs: Vital Signs - 12hr 02/13/21 02/13/21 02/14/21 21:23 23:55 00:21 Temperature 97.9 F Pulse Rate 88 83 76 Respiratory 18 Rate Blood Pressure 156/82 182/98 O2 Sat by Pulse 95 Oximetry 02/14/21 05:02 Temperature 98.2 F Pulse Rate 89 Respiratory 18 Rate Blood Pressure 185/88 O2 Sat by Pulse 93 Oximetry - Lab 02/13/21 04:22 02/13/21 04:22 Most recent lab results Calcium 8.5 mg/dL (8.4-10.2) 02/13/21 04:22 Medications & Allergies - Medications Allergies/Adverse Reactions: Allergies No Known Allergies Allergy (Verified 02/07/21 22:57) Home Medications: Home Medications Medication Instructions Recorded Confirmed Last Taken Type No Known Home Medications [No 02/10/21 02/10/21 Unknown History Reported Home Medications] Active Medications: Generic Name Dose Route Start Last Admin Trade Name Freq PRN Reason Stop Dose Admin Acetaminophen 650 mg 02/07/21 22:49 02/09/21 00:01 Acetaminophen 325 Mg Tab PO 650 mg Q4H PRN Administration Pain MILD(1-3)/Fever >100.5/JETT Dextrose 50 ml 02/07/21 22:49 Dextrose 50% In Water (25gm) 50 Ml Syringe IV Q30MIN PRN Hypoglycemia Protocol Sodium Chloride 1,000 mls @ 125 mls/hr 02/07/21 23:00 02/13/21 14:50 Nacl 0.9% 1000 Ml IV 125 mls/hr DIRECT KRISSY Administration Ceftriaxone Sodium 2 gm in 100 mls @ 200 mls/hr 02/08/21 15:00 02/13/21 14:50 Rocephin/Ns 2 Gm/100 Ml IV 03/22/21 15:29 200 mls/hr Q24H KRISSY Administration Protocol Vancomycin HCl 2,000 mg/ 540 mls @ 250 mls/hr 02/11/21 15:00 02/13/21 16:04 Sodium Chloride IV 250 mls/hr Q24H KRISSY Administration Insulin Human Lispro 0 unit 02/08/21 07:30 02/14/21 04:24 Insulin Lispro 100 Unit/Ml SUB-Q Not Given ACHS KRISSY Protocol Labetalol HCl 200 mg 02/13/21 10:00 02/13/21 21:23 Labetalol 200 Mg Tab PO 200 mg BID KRISSY Administration Magnesium Hydroxide 30 ml 02/07/21 22:49 Magnesium Hydroxide (Mom) Oral Liqd Udc PO Q4H PRN Constipation Morphine Sulfate 2 mg 02/07/21 22:49 Morphine 2 Mg/1 Ml Inj IV Q4H PRN Pain, Moderate (4-6) Ondansetron HCl 4 mg 02/07/21 22:49 Ondansetron 4 Mg/2 Ml Inj IV Q8H PRN Nausea And Vomiting Sodium Chloride 10 ml 02/08/21 10:00 02/13/21 21:23 Sodium Chloride 0.9% 10 Ml Flush Syringe IV 10 ml BID KRISSY Administration Sodium Chloride 10 ml 02/07/21 22:49 Sodium Chloride 0.9% 10 Ml Flush Syringe IV PRN PRN LINE FLUSH
[2021-02-14 09:46] VITALS: BP 179/97
--- NOTE | 2021-02-14 11:25 | Progress Note ---
Assessment and Plan Cultures: 02/07/2021 blood culture: no growth A/P: 60-year-old male with diabetes mellitus type 2, gout, history of osteomyelitis of his right foot requiring a transmetatarsal amputation in the past, chronic alcohol abuse, chronic thrombocytopenia which has been evaluated by hematology and attributed to alcohol abuse came into the emergency room with complaints of multiple falls. 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 Patient used to follow-up with the [facility] but states he does not have a ride anymore. MRI with possible early osteomyelitis. CRP 10.1, ESR 67. Vascular study without significant arterial insufficiency. #ANGEL on CKD: Secondary to longstanding hypertension and poorly controlled diabetes. Improved. #Chronic alcohol abuse with associated thrombocytopenia and underlying cirrhosis #Diabetes mellitus type 2, uncontrolled #Thrombocytopenia: Likely due underlying cirrhosis Recs: -Continue IV ceftriaxone, vancomycin -vancomycin target trough: 10-20 mcg/ml -Wound culture ordered - not done -Case management orders placed: IV ceftriaxone plus vancomycin for 6 weeks ending 03/22/2021 -patient desires to go back home in [place] he already bought VenJuvoet. In view of patient moving to a different state, it would not be good to send him on IV abx nor oral linezolid as he is already thrombocytopenic. He should find an ID provider in [place] for treatment. will follow Julia Velez MD [facility] ([facility]) Office [phone] Subjective Date of service: 02/14/21 Principal diagnosis: Right foot infection Interval history: Patient feels better, wants to go home. Objective - Exam Narrative Exam: General appearance: Alert in NAD pleasant Eyes: anicteric sclerae, moist conjunctivae; no lid-lag; PERRLA HENT: Normocephalic, Atraumatic; normal external ears, nares open, oropharynx limited Neck: supple, tracheal midline, no JVD Lungs: CTA, with normal respiratory effort and no intercostal retractions CV: RRR Abdomen: Soft, non-tender Extremities: no edema, no cyanosis Skin: No rash. Psych: no agitated Neuro: alert and oriented x 3. Moving all extermities - Constitutional Vitals: Vital Signs Temp Pulse Resp BP Pulse Ox 98.2 F 77 18 179/97 100 02/14/21 05:02 02/14/21 09:41 02/14/21 07:17 02/14/21 09:41 02/14/21 09:24 Temperature -Last 24 Hours Temperature 98.2 F Temperature 97.9 F Temperature 98.2 F Temperature 97.5 F - Labs CBC & Chem 7: 02/13/21 04:22 02/13/21 04:22 Labs: Abnormal lab results 02/13/21 02/13/21 02/14/21 Range/Units 16:07 21:33 07:20 POC Glucose 273 H 281 H 263 H (70-105) mg/dL
--- NOTE | 2021-02-14 13:14 | Discharge Summary ---
Providers - Providers Date of Admission: 02/09/21 09:41 Date of discharge: 02/14/21 Attending physician: DEZ DUNN 02/07/21 22:49 Consult to Dietitian/Nutrition [CONS] Routine Physician Instructions: Reason For Exam: Reason for Consult: Diet education Consult to Physician [CONS] Routine Comment: Consulting Provider: YUNIER GONZALEZ Physician Instructions: Reason For Exam: Infected Diabetic foot ulcer Consult to Physician [CONS] Routine Comment: Consulting Provider: SABINA ROBERTS Physician Instructions: Reason For Exam: Hyponatremia 02/08/21 07:12 Consult to Wound/ET Nurse [CONS] Routine Reason For Exam: wound eval 02/08/21 10:13 Physical Therapy Evaluation and Treat [CONS] Routine Comment: Reason For Exam: debility Mode of Transport?: Cane 02/10/21 10:56 Consult to Case Management [CONS] Routine Services Needed at Discharge: 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 Lines: Maintain IV access with weekly dressing changes and locks per protocol. Lab monitoring: - CBC with differential, Creatinine, ALT, AST, Vancomycin trough, ESR, CRP once a week every Saturday while on IV antibiotics. Please fax results to [phone] and call [phone] for critical lab results. MD [facility] 02/10/21 11:09 Consult to PICC Line RN [CONS] Routine Reason For Exam: iv abx Type Line:: PICC Primary care physician: DENTAL CERAMIST HELPER Hospitalization Condition: Serious Hospital course: Patient is a 60-year-old male with known history of diabetes mellitus and hepatitis C presents to the emergency room today complaining of chills and pain on the right foot after having multiple falls. Patient denies hitting his head and denies any loss of consciousness. 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 He has had some minimal drainage from the stump with increasing pain lately. Patient denies any fever or chills, no chest pain or shortness of breath, no nausea or vomiting. Work-up in the emergency room today reveals hyponatremia 128, lactic acidosis and slightly elevated creatinine level. Patient has been admitted with right foot ulcer, hypertension and SIRS. Hospital course 02/09/2021. MRI reveals evidence of osteomyelitis. Await ID recommendations with regards to IV antibiotics. Continue Accu-Cheks and sliding scale insulin for tight glycemic control to promote wound healing. Continue antihypertensive medications 02/10/2021. Continue IV antibiotics. Wound culture pending. Follow-up vascular studies. Continue Accu-Cheks and sliding scale insulin for tight glycemic control to promote wound healing. 02/11/2021. Continue IV ceftriaxone and vancomycin per ID recommendations. Await wound culture for further evaluation. PICC line ordered. ID recommends Rocephin and vancomycin for 6 weeks ending on 03/22/2021. Await arrangements of IV antibiotics per case management. 02/12/2021. Continue IV antibiotics per ID recommendations. ID recommends Rocephin and vancomycin for 6 weeks ending on 03/22/2021. Await arrangements of IV antibiotics per case management. 02/13/2021. Continue IV antibiotics of Rocephin and vancomycin recommended for 6 weeks per ID. Await arrangements of IV antibiotics per case management. Acute kidney injury has resolved and patient's creatinine back to normal. Nephrology following. Tight glycemic control to promote wound healing. 02/14- 21. Patient needs IV antibiotics with patient lives in [place]. He already has a bus ticket to [place] tomorrow. He will be discharged on oral antibiotics and he has been advised to see an infectious disease specialist immediately he gets to [place] as he needs IV antibiotics. He verbalizes understanding. He will be discharged on doxycycline and Augmentin as discussed with infectious disease. His blood pressure is not well controlled so he will be discharged on blood pressure medications as well Disposition: - TO HOME OR SELFCARE Final Discharge Diagnosis (Prints w/discharge instructions): Right foot osteomyelitis Time spent for discharge: 40 minutes - Discharge Diagnoses (1) Osteomyelitis of right foot Status: Acute (2) Hypertension Status: Acute (3) Sepsis Status: Acute (4) Acute metabolic encephalopathy Status: Acute (5) ANGEL (acute kidney injury) Status: Acute Comment: ATN Core Measure Documentation - Palliative Care Palliative Care/ Comfort Measures: Not Applicable - Core Measures Any of the following diagnoses?: none Exam - Constitutional Vitals: Temp Pulse Resp BP Pulse Ox 98.2 F 77 18 179/97 100 02/14/21 05:02 02/14/21 09:41 02/14/21 07:17 02/14/21 09:41 02/14/21 09:24 General appearance: Present: no acute distress, well-nourished - EENT Eyes: Present: PERRL ENT: hearing intact, clear oral mucosa - Neck Neck: Present: supple, normal ROM - Respiratory Respiratory effort: normal Respiratory: bilateral: CTA - Cardiovascular Heart Sounds: Present: S1 & S2. Absent: rub, click - Extremities Extremities: pulses symmetrical, No edema Peripheral Pulses: within normal limits - Abdominal General gastrointestinal: Present: soft, non-tender, non-distended, normal bowel sounds Male genitourinary: Present: normal - Integumentary Integumentary: Present: clear, warm, dry - Musculoskeletal Musculoskeletal: strength equal bilaterally, other (Right foot dressing intact) - Psychiatric Psychiatric: appropriate mood/affect, intact judgment & insight - Neurologic Neurologic: CNII-XII intact, moves all extremities Plan Diet: low fat, low cholesterol, low salt, diabetic Additional Instructions: Continue medications as prescribed. You will need to see an infectious disease specialist immediately you get to [place] as you need IV antibiotics for your right foot wound. Continue antibiotics as prescribed until you see the infectious disease specialist. You need to see a doctor for management of your diabetes. You will need insulin injections for your diabetes Follow up with: PRIMARY CARE, [Primary Care Provider] - 7 Days Prescriptions: amLODIPine 10 mg PO QDAY #30 tablet Amoxicillin/Potassium Clav [Augmentin 875-125 Tablet] 1 each PO BID #28 tablet Doxycycline Hyclate [Doxycycline Hyclate TAB] 100 mg PO Q12HR #28 tab metFORMIN [Glucophage] 850 mg PO BID #60 tablet labetaloL [Labetalol 200mg TAB] 200 mg PO BID #60 tablet
[2021-02-14] MEDS ORDERED: amLODIPine 10 MG TAB PO SCH (14:00)
[2021-02-14] MEDS: cefTRIAXone/NS 2 GM/100 ML 2 GM/100 ML BAG IV SCH (14:20)
[2021-02-14] MEDS: VANCOMYCIN 2,000 MG in SODIUM CHLORIDE 0.9% 500 ML 500 ML IV SCH (14:59)
== END 2021-02-14 18:04 | disposition home or self-care (01) | DRG 871 ==
LOC: ED 18:13 → 4A 22:23 → OBSVTOIN 02-09 09:41
PROVIDERS: ADMIT Internal Medicine Geriatric Medicine; ATTEND Internal Medicine
PROC: 02HV33Z Insertion of Infusion Device into Superior Vena Cava, Percutaneous Approach (ICD-10-PCS; principal; 2021-02-08)
DX: A41.9 Sepsis, unspecified organism (principal); N17.0 Acute kidney failure with tubular necrosis; G93.41 Metabolic encephalopathy; E87.1 Hypo-osmolality and hyponatremia; L03.90 Cellulitis, unspecified; N18.9 Chronic kidney disease, unspecified; E11.22 Type 2 diabetes mellitus with diabetic chronic kidney disease; M86.671 Other chronic osteomyelitis, right ankle and foot; I12.9 Hypertensive chronic kidney disease with stage 1 through stage 4 chronic kidney disease, or unspecified chronic kidney disease; E11.69 Type 2 diabetes mellitus with other specified complication; D64.9 Anemia, unspecified; F10.10 Alcohol abuse, uncomplicated; D69.6 Thrombocytopenia, unspecified; M86.171 Other acute osteomyelitis, right ankle and foot; T87.43 Infection of amputation stump, right lower extremity; D72.819 Decreased white blood cell count, unspecified; Y83.8 Other surgical procedures as the cause of abnormal reaction of the patient, or of later complication, without mention of misadventure at the time of the procedure; Z89.431 Acquired absence of right foot; Z86.19 Personal history of other infectious and parasitic diseases; Z87.891 Personal history of nicotine dependence; Z79.899 Other long term (current) drug therapy; Z79.891 Long term (current) use of opiate analgesic; Z91.19 Patient's noncompliance with other medical treatment and regimen
CPT/HCPCS: 36415; 70450; 71045; 80048; 80053; 80202; 80320; 81001; 82140; 82805; 82962; 83036; 84484; 85025; 85610; 85652; 85730; 86140; 87040; 93925; 96365; 96375; G0378; G0480; J0696; J1815; J3370; J7030; J7040